=== PATIENT | female | born 1950 | race Caucasian/White ===

== ENCOUNTER 2022-02-02 01:45 | Emergency (ER) | payer MEDICARE, OTHER ==
[2022-02-02] MEDS: ACETAMINOPHEN 325 MG TABLET PO STA (03:21)
--- NOTE | 2022-02-02 03:34 | ED Physician Documentation ---
History of Present Illness - Stated complaint Stated Complaint: GLF - Chief complaint Chief Complaint: Trauma Ch/Bk - History obtained from History obtained from: Patient - Additonal information Additional information: Patient is a 72-year-old female presenting for evaluation of head injury. She was standing up and reaching down to flower picker something on a rug when she misjudged the distance and fell forward hitting her head on the ground. She was not able to get up and activated EMS.She denies losing consciousness or being on blood thinners. She denies any recent symptoms such as fever, cough, chest pain, difficulty breathing, dizziness, abdominal pain. She reports having swelling to bilateral legs which has continued despite use of compression stockings. Her doctor has recommended diuretic in the past but she does not want to take medication such as this. She denies any new weakness. She recently moved to [facility] and has been getting her apartment ready with moving boxes and things around. Review of Systems Constitutional: denies: Fever Nose: denies: Congestion Cardiac: denies: Chest pain / pressure, Palpitations Respiratory: denies: Dyspnea, Cough GI: denies: Abdominal Pain, Vomiting : denies: Dysuria Musculoskeletal: reports: Extremity swelling Neurologic: reports: Head injury. 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 - Allergies Allergies/Adverse Reactions: Allergies Allergy/AdvReac Type Severity Reaction Status Date / Time No Known Drug Allergies Allergy Verified 02/02/22 01:59 - Social History Does the pt smoke?: No Smoking Status: Never smoker Does the pt drink ETOH?: No Does the pt have substance abuse?: No - Immunizations Immunizations are current?: Yes - POLST Patient has POLST: No PD ED PE NORMAL - General General: Alert and oriented X 3, No acute distress, Well developed/nourished - HEENT HEENT: Atraumatic, EOMI, Pharynx benign, Other (Pupils round, constricted, Symmetric) - Neck Neck: Supple, no meningeal sign, No bony TTP, C-Spine cleared by NEXUS criteria - Cardiac Cardiac: RRR, No murmur, Strong equal pulses - Respiratory Respiratory: No respiratory distress, Clear bilaterally - Abdomen Abdomen: Normal bowel sounds, Soft, Non tender - Back Back: No spinal TTP - Extremities Extremities: Other (Bilateral lower extremity pitting edema) - Neuro Neuro: Alert and oriented X 3, 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, No motor deficit, Normal speech - Psych Psych: Normal mood Results - Vitals Vitals: Vital Signs - 24 hr 02/02/22 02/02/22 02/02/22 01:54 03:29 03:57 Temperature 36.1 C L 36.0 C L Heart Rate 65 68 72 Respiratory 17 16 16 Rate Blood Pressure 155/73 H 132/57 H O2 Saturation 96 96 96 02/02/22 02/02/22 05:05 06:26 Temperature Heart Rate Respiratory 15 15 Rate Blood Pressure O2 Saturation Oxygen O2 Source Room air PD MEDICAL DECISION MAKING - ED course Complexity details: reviewed results, d/w patient ED course: Patient is a 72-year-old female presenting for evaluation of head injury after mechanical fall. No pain or areas of injury noted on exam.No focal neuro deficits noted. Given age, CT was obtained which is negative for acute findings. Patient appears to be at her baseline.Patient denies any precipitating symptoms to her fall. She does have lower extremity edema and has been advised to use diuretics in the past but does not want to. Patient again encouraged to have close follow-up with her primary care doctor and appears stable for discharge. She is aware of return precautions. Departure - Departure Disposition: 01 Home, Self Care Clinical Impression: Head injury Qualifiers: Encounter type: initial encounter Qualified Code(s): S09.90XA - Unspecified injury of head, initial encounter Condition: Stable Instructions: ED Head Injury Closed Comments: Coby - You were evaluated after a fall and hitting your head. Head CT does not show any injuries to your brain or skull. Please use Tylenol For any aches or pains. Please have close follow-up with your primary care doctor. If you have any worsening pain, weakness or new symptoms please return to the emergency department. Discharge Date/Time: 02/02/22 08:40
[2022-02-02 03:58] VITALS: BP 132/57
--- NOTE | 2022-02-02 07:32 | CT Report ---
PROCEDURE: HEAD WO INDICATIONS: head injury TECHNIQUE: Noncontrast 4.5 mm thick angled axial sections acquired from the foramen magnum to the vertex. For r adiation dose reduction, the following was used: automated exposure control, adjustment of mA and/or kV according to patient size. COMPARISON: None. FINDINGS: Image quality: Excellent. CSF spaces: Basal cisterns are patent. No extra-axial fluid collections. Ventricles are normal in size and shape. Brain: No midline shift. No intracranial masses or hemorrhage. Wilhelm-white matter interface is norm al. Skull and face: Calvarium and visualized facial bones are intact, without suspicious lesions. Sinuses: Visualized sinuses and mastoids are clear. IMPRESSION: No acute intracranial disease process. Reviewed by: Shireen Khan MD, PhD on 02/02/2022 7:31 AM PDT Approved by: Shireen Khan MD, PhD on 02/02/2022 7:31 AM PDT Station ID: [id number]
== END 2022-02-02 08:40 | disposition home or self-care (01) ==
LOC: ED 01:45
DX: S09.90XA Unspecified injury of head, initial encounter (principal); W18.30XA Fall on same level, unspecified, initial encounter; I10 Essential (primary) hypertension; Z99.3 Dependence on wheelchair
CPT/HCPCS: 70450; 99282; 99284; A9270

== ENCOUNTER 2022-06-16 01:54 | Outpatient (CLI) | payer MEDICARE, OTHER | END 2022-06-16 01:55 | disposition left against medical advice (07) | LOC: EMS 01:54 | DX: M79.652 Pain in left thigh (principal); M79.672 Pain in left foot; W06.XXXA Fall from bed, initial encounter; Y92.092 Bedroom in other non-institutional residence as the place of occurrence of the external cause ==

== ENCOUNTER 2022-07-30 01:38 | Emergency (ER) | payer MEDICARE, OTHER ==
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
[2022-07-30 05:47] VITALS: BP 142/86
--- NOTE | 2022-07-30 10:23 | CT Report ---
PROCEDURE: HEAD WO INDICATIONS: fall/head injury TECHNIQUE: Noncontrast 4.5 mm thick angled axial sections acquired from the foramen magnum to the vertex. For r adiation dose reduction, the following was used: automated exposure control, adjustment of mA and/or kV according to patient size. COMPARISON: 04/13/2022, 03/04/2022. Correlation is also made with the hip and knee plain films, 022. FINDINGS: Image quality: Excellent. CSF spaces: Basal cisterns are patent. No extra-axial fluid collections. Ventricles are normal in size and shape. Brain: No midline shift. No intracranial masses or hemorrhage. Wilhelm-white matter interface is norm al. Skull and face: Calvarium and visualized facial bones are intact, without suspicious lesions. Sinuses: Visualized sinuses and mastoids are clear. IMPRESSION: No intracranial hemorrhage is seen. No significant intracranial abnormality is seen. Note: No significant discrepancy from the preliminary report. Reviewed by: Joaquim Pierson MD on 07/30/2022 9:22 AM [facility] Approved by: Joaquim Pierson MD on 07/30/2022 9:22 AM [facility] Station ID: [id number]
--- NOTE | 2022-07-30 10:24 | XRAY Report ---
PROCEDURE: Knee 3 View LT INDICATIONS: fall TECHNIQUE: 3 views of the left knee(s) were acquired. COMPARISON: Correlation is made with the accompanying head CT and hip plain films, 07/30/2022. FINDINGS: Bones: No fractures or dislocations. No suspicious bony lesions. Degenerative changes are seen, in cluding mild to moderate medial femorotibial joint space narrowing and moderate patellofemoral joint space narrowing. Soft tissues: No joint effusion. No suspicious soft tissue calcifications. IMPRESSION: No acute plain film abnormality is seen. Underlying degenerative changes are seen. If it would be helpful for clinical management decision making, please consider a dedicated, schedule d knee MRI for further evaluation (assuming that there is no contraindication). Note: No significant discrepancy from the preliminary report. Reviewed by: Joaquim Pierson MD on 07/30/2022 9:23 AM [facility] Approved by: Joaquim Pierson MD on 07/30/2022 9:23 AM [facility] Station ID: [id number]
--- NOTE | 2022-07-30 10:25 | XRAY Report ---
PROCEDURE: Hip w/Pelvis 2-3V LT INDICATIONS: fall TECHNIQUE: AP pelvis with lateral view(s) of the left hip(s). COMPARISON: Correlation is made with the accompanying knee plain films and head CT, 07/30/2022. FINDINGS: Bones: No fractures or dislocations. Pelvic ring appears intact. No suspicious bony lesions. Note is made of age-appropriate degenerative change of the lower lumbar spine. There is moderate superior joint space narrowing seen involving both hips. There is associated remode ling change, with subchondral sclerosis and osteophyte formation. Soft tissues: The visualized bowel gas pattern is normal. No suspicious soft tissue calcifications. IMPRESSION: Negative for acute fracture by plain film. Underlying degenerative changes are seen. Note: No significant discrepancy from the preliminary report. Reviewed by: Joaquim Pierson MD on 07/30/2022 9:24 AM [facility] Approved by: Joaquim Pierson MD on 07/30/2022 9:24 AM [facility] Station ID: [id number]
== END 2022-07-30 05:45 | disposition home or self-care (01) ==
LOC: ED 01:38
DX: S00.81XA Abrasion of other part of head, initial encounter (principal); S09.90XA Unspecified injury of head, initial encounter; M25.562 Pain in left knee; V00.811A Fall from moving wheelchair (powered), initial encounter; Y93.89 Activity, other specified
CPT/HCPCS: 99282; 99284

== ENCOUNTER 2023-08-07 13:25 | Outpatient (CLI) | payer MEDICARE, OTHER | END 2023-08-07 13:26 | disposition critical access hospital (66) | LOC: EMS 13:25 | DX: R47.81 Slurred speech (principal); R53.1 Weakness; R39.89 Other symptoms and signs involving the genitourinary system | CPT/HCPCS: A0425; A0429 ==

== ENCOUNTER 2023-08-07 13:44 | Emergency (ER) | payer MEDICARE, OTHER ==
--- NOTE | 2023-08-07 14:10 | ED Physician Documentation ---
PD HPI FOCAL NEURO - Stated complaint Stated Complaint: GEN WEAKNESS - Chief complaint Chief Complaint: General - History obtained from History obtained from: Patient, EMS - History of Present Illness Weakness: No: Face, Arm, Hand, Leg, Foot, Right, Left Numbness: No: Face, Arm, Hand, Leg, Foot, Right, Left Associated symptoms: No: Headache, Nausea / vomiting, Seizure, Fall, Head injury Contributing factors: negative: Anticoagulated, Vascular dz, Atrial fibrillation, Prosthetic heart valve Baseline status: positive: Wheelchair - Additional information Additional information: Patient is a 73-year-old female who lives at [place]. She presents today with a complaint of slurred speech, last known normal was last night. She states that she does have a history of a stroke affecting her left side. She does not recall if she had any speech difficulties with a prior stroke or not. She usually uses a power chair to move around at the [facility]. No headache, no vomiting, no seizure activity denies any falls or head injury. No numbness, tingling or focal weakness. No headache. Nothing makes it better or worse. She states she awoke with the symptoms this morning. 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 : Other HEENT: Glaucoma Psych: None Musculoskeletal: None Derm: None - Present Medications Home Medications: Ambulatory Orders Medication Instructions Recorded Confirmed Levothyroxine [Synthroid] 1 tab PO DAILY 07/30/22 08/07/23 carvediloL [Coreg] 1 tab PO BID 07/30/22 08/07/23 Furosemide [Lasix] 20 mg PO DAILY 08/07/23 08/07/23 Losartan Potassium 25 mg PO DAILY 08/07/23 08/07/23 cephALEXin [Keflex] 500 mg PO Q6H #20 cap 08/07/23 - Allergies Allergies/Adverse Reactions: Allergies Allergy/AdvReac Type Severity Reaction Status Date / Time No Known Drug Allergies Allergy Unverified 07/30/22 01:36 - Social History Does the pt smoke?: No Smoking Status: Never smoker Does the pt drink ETOH?: No Does the pt have substance abuse?: No - Immunizations Immunizations are current?: Yes - POLST Patient has POLST: No PD ED PE NORMAL - Vitals Vital signs reviewed: Yes - General General: Alert and oriented X 3, No acute distress, Well developed/nourished - HEENT HEENT: PERRL, Moist mucous membranes, Pharynx benign, Other (Very mild dysarthria) - Neck Neck: Supple, no meningeal sign - Cardiac Cardiac: RRR, Strong equal pulses - Respiratory Respiratory: No respiratory distress, Clear bilaterally - Abdomen Abdomen: Soft, Non tender, Non distended - Back Back: No CVA TTP, No spinal TTP - Derm Derm: Warm and dry - Extremities Extremities: No edema, No calf tenderness / cord - Neuro Neuro: Alert and oriented X 3, 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 poultry 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, No motor deficit, No sensory deficit Eye Opening: Spontaneous Motor: Obeys Commands Verbal: Oriented GCS Score: 15 - Psych Psych: Normal mood, Normal affect NIHSS - Time Time: 14:05 - Level of Consciousness Level of consciousness: (0) Alert, Keenly responsive LOC Questions: (0) Answers both Q's correct LOC Commands: (0) Performs both correctly - Gaze Best Gaze: (0) Normal - Visual Visual: (0) No loss - Facial Palsy Facial Palsy: (0) Normal, symmetrical movement - Motor Arms (both separate) Motor Arm (right): (0) No drift Motor Arm (left): (0) No drift - Motor Legs (both separate) Motor Leg (right): (0) No drift Motor Leg (left): (0) No drift - Limb Ataxia Limb Ataxia: (0) Absent - Sensory Sensory: (0) Normal - Best Language Best Language: (0) No aphasia - Dysarthria Dysarthria: (1) [id number] dysarthria - Extinction and Inattention (formally neg Extinction and inattention: (0) No abnormality - Total Score/Results Total Score/Result: 1 Results - Vitals Vitals: Vital Signs - 24 hr 08/07/23 08/07/23 08/07/23 13:49 14:01 17:13 Temperature 36.4 C L Heart Rate 63 59 L 76 Respiratory 16 21 20 Rate Blood Pressure 147/62 H 147/62 H 197/88 H O2 Saturation 96 95 97 08/07/23 08/07/23 20:10 20:29 Temperature 37 C 37 C Heart Rate 83 83 Respiratory 20 20 Rate Blood Pressure 134/74 H 134/85 H O2 Saturation 100 100 Oxygen O2 Source Room air - Labs Labs: Laboratory Tests 08/07/23 08/07/23 08/07/23 14:19 14:19 14:48 WBC 9.0 RBC 4.41 Hgb 12.7 Hct 40.4 MCV 91.6 MCH 28.8 MCHC 31.4 L RDW 14.6 Plt Count 250 MPV 11.9 H Neut # (Auto) 6.1 Lymph # (Auto) 2.0 [place] # (Auto) 0.7 Eos # (Auto) 0.1 Baso # (Auto) 0.1 Absolute Nucleated RBC 0.00 Nucleated RBC % 0.0 Sodium 137 Potassium 4.0 Chloride 103 Carbon Dioxide 26 Anion Gap 8.0 BUN 27 H Creatinine 1.3 Estimated GFR (MDRD) 40 L Glucose 123 H Calcium 9.6 Total Bilirubin 0.6 AST 16 ALT 13 Alkaline Phosphatase 97 Total Protein 6.9 Albumin 4.3 Globulin 2.6 Albumin/Globulin Ratio 1.7 Lipase 37 Urine Color YELLOW Urine Clarity CLEAR Urine pH 7.0 Ur Specific [place] 1.010 Urine Protein TRACE Urine Glucose (UA) NEGATIVE Urine Ketones NEGATIVE Urine Occult Blood NEGATIVE Urine Nitrite POSITIVE H Urine Bilirubin NEGATIVE Urine Urobilinogen 0.2 (NORMAL) Ur Leukocyte Esterase LARGE H Urine RBC 0-5 Urine WBC >25 H Ur Squamous Epith Cells FEW Squamous Amorphous Sediment Marked Urine Bacteria Many H Ur Microscopic Review INDICATED Urine Culture Comments INDICATED - Rads (name of study) CT head Relevant Findings:: Final report received, See rad report Angio head and neck Relevant Findings:: Final report received, See rad report Brain MRI Relevant Findings:: Final report received, See rad report PD Medical Decision Making - ED course Complexity details: reviewed results, re-evaluated patient, considered differential, d/w patient ED course: Patient with mild dysarthria. No acute findings on CT scan of the head, angiogram of the head and neck or brain MRI. Only lab abnormality is a UTI. Given Rocephin for this and will place on antibiotics for home. No evidence of sepsis. No fevers. Patient appears to be at her normal mental baseline. Patient is eating and drinking without difficulty here. No evidence of acute stroke. No other significant findings. Patient counseled regarding signs and symptoms for which I believe and urgent re-evaluation would be necessary. Patient with good understanding of and agreement to plan and is comfortable going home at this time This document was made in part using voice recognition software. While efforts are made to proofread this document, sound alike and grammatical errors may occur. Departure - Departure Disposition: Home, Self Care Clinical Impression: Dysarthria UTI (urinary tract infection) Qualifiers: Urinary tract infection type: acute cystitis Hematuria presence: without hematuria Qualified Code(s): N30.00 - Acute cystitis without hematuria Condition: Good Instructions: ED UTI Cystitis Female Follow-Up: SRINIVASA MCCARTY PA-C [Primary Care Provider] - Within 1 week Prescriptions: cephALEXin [Keflex] 500 mg PO Q6H #20 cap Comments: [facility]. Please follow-up with your doctor for further care. Your CT scan and MRI do not show any acute abnormalities today. You do appear to have a bladder infection. Forms: PCP List Discharge Date/Time: 08/07/23 20:30
[2023-08-07 14:24] LABS: BASOPHILS # (AUTO) 0.1 10^3/uL (0.0-0.1); BASOPHILS % (AUTO) 0.7 %; EOSINOPHILS # (AUTO) 0.1 10^3/uL (0.0-0.7); HCT - HEMATOCRIT 40.4 % (37.0-47.0); HGB - HEMOGLOBIN 12.7 g/dL (12.0-16.0); LYMPHOCYTES % (AUTO) 22.4 %; MEAN CORPUSCULAR HEMOGLOBIN 28.8 pg (27.0-31.0); MEAN CORPUSCULAR HGB CONC 31.4 g/dL (32.0-36.0); MEAN CORPUSCULAR VOLUME 91.6 fL (81.0-99.0); MEAN PLATELET VOLUME 11.9 fL (7.9-10.8); MONOCYTES # (AUTO) 0.7 10^3/uL (0.0-1.0); MONOCYTES % (AUTO) 8.2 %; NEUTROPHILS # (AUTO) 6.1 10^3/uL (1.5-6.6); NEUTROPHILS % (AUTO) 67.6 %; PLT - PLATELET COUNT 250 10^3/uL (130-450); RED BLOOD COUNT 4.41 10^6/uL (4.20-5.40); RED CELL DISTRIBUTION WIDTH 14.6 % (12.0-15.0)
[2023-08-07 14:40] LABS: ALBUMIN 4.3 g/dL (3.2-5.5); ALBUMIN/GLOBULIN RATIO 1.7 (1.0-2.2); BILIRUBIN,TOTAL 0.6 mg/dL (0.2-1.0); CALCIUM 9.6 mg/dL (8.5-10.3); CREATININE 1.3 mg/dL (0.6-1.3); TOTAL PROTEIN 6.9 g/dL (6.4-8.9)
[2023-08-07 14:58] LABS: BILIRUBIN,URINE NEGATIVE (NEGATIVE); CLARITY,URINE CLEAR (CLEAR); GLUCOSE, URINE (UA) NEGATIVE (NEGATIVE); KETONES,URINE (UA) NEGATIVE (NEGATIVE); LEUKOCYTE ESTERASE, URINE LARGE (NEGATIVE); NITRITE,URINE POSITIVE (NEGATIVE); OCCULT BLOOD,URINE NEGATIVE (NEGATIVE); PROTEIN,URINE TRACE mg/dL (NEGATIVE); UROBILINOGEN,URINE 0.2 (NORMAL) E.U./dL (NORMAL)
[2023-08-07] MEDS ORDERED: iohexoL-300 100 ML VIAL IVP ONE (15:03)
[2023-08-07 15:08] LABS: AMORPHOUS SEDIMENT,UR Marked /LPF; BACTERIA,URINE Many /HPF (None Seen); RBC,URINE 0-5 /HPF (0-5); SQUAMOUS EPITHELIAL CELL,UR FEW Squamous (<= Few); WBC,URINE >25 /HPF (0-5)
--- NOTE | 2023-08-07 15:29 | CT Report ---
PROCEDURE: HEAD WO INDICATIONS: slurred speech x 24 hours TECHNIQUE: Noncontrast 4.5 mm thick angled axial sections acquired from the foramen magnum to the vertex. For r adiation dose reduction, the following was used: automated exposure control, adjustment of mA and/or kV according to patient size. COMPARISON: None. FINDINGS: Image quality: Excellent. CSF spaces: Basal cisterns are patent. No extra-axial fluid collections. Ventricles are normal in size and shape. Brain: No midline shift. No intracranial masses or hemorrhage. Wilhelm-white matter interface is norm al. Skull and face: Calvarium and visualized facial bones are intact, without suspicious lesions. Sinuses: Visualized sinuses and mastoids are clear. IMPRESSION: No acute intracranial abnormality. Reviewed by: Bruce Long MD on 08/07/2023 3:27 PM PST Approved by: Bruce Long MD on 08/07/2023 3:27 PM PST Station ID: [id number]
--- NOTE | 2023-08-07 15:31 | CT Report ---
PROCEDURE: CT Angio Head/Neck INDICATIONS: slurred speech x 24 hours TECHNIQUE: After the administration of intravenous contrast, 1 mm thick sections acquired from the aortic arch t hrough the [place]. 3-dimensional mqafxsc-khbgagxvg-xujnumfjbh (MIP) and/or volume renderin g reformats were acquired of the central intracranial vasculature and neck separately. For radiation dose reduction, the following was used: automated exposure control, adjustment of mA and/or kV acco rding to patient size. CONTRAST: Intravenous iodinated contrast COMPARISON: None. FINDINGS: Image quality: Diagnostic. HEAD CT: CSF Spaces: Basal cisterns are patent. No extra-axial fluid collections. Ventricles are normal in size and shape. Brain: The brain is within normal limits for age and scanning technique. Skull and face: Calvarium and visualized facial bones appear intact, without suspicious lesions. Sinuses: Visualized sinuses and mastoids are clear. HEAD CT ANGIOGRAPHY: Anterior circulation: Intracranial internal carotid arteries are normal in size and flow. The flow within the paired anterior cerebral arteries is normal and symmetric. The flow within the middle cer ebral arteries is normal and symmetric. The anterior communicating artery is seen. No aneurysms are seen. Posterior circulation: Visualized portions of the vertebral arteries demonstrate normal caliber, and join to form a normal appearing basilar artery. Flow within the posterior cerebral arteries is norm al and symmetric. No aneurysms are seen. NECK CT ANGIOGRAPHY: Carotid system: The great vessels demonstrate a conventional anatomy as they arise from the aortic a rch. The origins of the common carotid arteries appear patent. The common carotid arteries demonstr ate normal caliber and courses. There is a roughly 50% origin stenosis of the right internal carotid artery. Roughly 40% origin stenosis of the left internal carotid artery. Posterior circulation: The origins of the vertebral arteries both appear widely patent. The more roberts perior extracranial portions of both vertebral arteries also demonstrate normal courses and calibers. They join to form a normal appearing basilar artery. Soft tissues: Visualized neck soft tissues demonstrate no suspicious abnormalities. Bones: No suspicious bony lesions. Visualized cervical spine appears normally aligned. IMPRESSION: 1. No acute process involving the arterial tree of the head and neck. 2. Bilateral internal carotid artery origin stenoses. The estimate of stenosis included in the report of the imaging study was calculated using the NASCET method Reviewed by: Bruce Long MD on 08/07/2023 3:30 PM PST Approved by: Bruec Long MD on 08/07/2023 3:30 PM [facility] Station ID: [id number]
[2023-08-07] MEDS ORDERED: cefTRIAXone 1 GM VIAL IVP STA (17:39)
--- NOTE | 2023-08-07 19:20 | MRI Report ---
PROCEDURE: BRAIN WO INDICATIONS: slurred speech x 24 hours TECHNIQUE: Noncontrast axial T1 spin echo, axial T2 fast spin echo, sagittal and axial FLAIR, coronal T2 fast sp in echo, axial gradient echo, axial diffusion and ADC through the brain. COMPARISON: CT of head on the same day. FINDINGS: Image quality: Excellent. CSF Spaces: Basal cisterns are patent. No extra-axial fluid collections. Ventricles are normal in size and shape. Brain: No intracranial masses or hemorrhage. There is diffuse volume loss related to patient's age. Mild to moderate periventricular and deep white matter chronic small vessel ischemic changes are note d. Old lacunar infarct is seen in left basal ganglia. Wilhelm/white matter interface is normal. Brainst em appears normal. Diffusion-weighted images demonstrate no acute ischemic insult. No chronic ische renate insults. Normal intravascular flow voids are present. Skull and face: Calvarium has normal marrow signal. Orbits appear normal. Sinuses: Sinuses and mastoids are clear. IMPRESSION: 1. No acute infarction. No acute intracranial bleed, midline shift or mass effect. 2. Age-related volume loss and moderate periventricular and deep white matter chronic small vessel is chemic changes. Old lacunar infarct in left basal ganglia. Reviewed by: Rodri Gurrola MD on 08/07/2023 7:19 PM PST Approved by: Rodri Gurrola MD on 08/07/2023 7:19 PM PST Station ID: [id number]
[2023-08-07 20:17] VITALS: O2SAT 100
[2023-08-07 20:34] VITALS: BP 134/85
== END 2023-08-07 20:30 | disposition home or self-care (01) ==
LOC: EDUNIT# → ED 13:44
DX: N30.00 Acute cystitis without hematuria (principal); R47.1 Dysarthria and anarthria; I10 Essential (primary) hypertension
CPT/HCPCS: 36415; 70450; 70496; 70498; 70551; 80053; 81001; 83690; 85025; 87086; 87181; 96374; 99284; Q9967; 81003

== ENCOUNTER 2023-08-07 20:26 | Outpatient (CLI) | payer MEDICARE, OTHER | END 2023-08-07 23:59 | disposition home or self-care (01) | LOC: EMS 20:26 | PROVIDERS: ATTEND Emergency Medicine | DX: R41.0 Disorientation, unspecified (principal); R60.0 Localized edema; R53.1 Weakness; N39.0 Urinary tract infection, site not specified; Z74.01 Bed confinement status | CPT/HCPCS: A0425; A0428 ==

== ENCOUNTER 2023-11-17 13:45 | Outpatient (CLI) | payer MEDICARE, OTHER | END 2023-11-17 13:46 | disposition left against medical advice (07) | LOC: EMS 13:45 | DX: M79.672 Pain in left foot (principal); W18.39XA Other fall on same level, initial encounter; Y93.01 Activity, walking, marching and hiking; Y92.099 Unspecified place in other non-institutional residence as the place of occurrence of the external cause; R53.1 Weakness ==

== ENCOUNTER 2023-11-17 17:53 | Outpatient (CLI) | payer MEDICARE, OTHER | END 2023-11-17 17:54 | disposition critical access hospital (66) | LOC: EMS 17:53 | DX: M25.571 Pain in right ankle and joints of right foot (principal); W18.30XA Fall on same level, unspecified, initial encounter; Y93.01 Activity, walking, marching and hiking; Y92.099 Unspecified place in other non-institutional residence as the place of occurrence of the external cause; R53.1 Weakness | CPT/HCPCS: A0425; A0429 ==

== ENCOUNTER 2023-11-17 18:11 | Emergency (ER) | payer MEDICARE, OTHER ==
--- NOTE | 2023-11-17 18:25 | ED Physician Documentation ---
PD HPI LOWER EXT INJURY - Stated complaint Stated Complaint: GLF, RT FOOT AND ANKLE PAIN - History obtained from History obtained from: Patient, EMS - Additional information Additional information: 73-year-old woman with history of hypertension, CHF, glaucoma who is in assisted living facility had a fall today. She states that she was trying to exercise more and improve her endurance, and she walked further than she is used to and then she kind of got weak and fell. The main issue is right foot pain for which she declines pain medication on initial evaluation. Denies head injury or loss of consciousness. No chest pain or trouble breathing. 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 : Other HEENT: Glaucoma Psych: None Musculoskeletal: None Derm: None - Present Medications Home Medications: Ambulatory Orders Medication Instructions Recorded Confirmed Levothyroxine [Synthroid] 1 tab PO DAILY 07/30/22 11/17/23 carvediloL [Coreg] 1 tab PO BID 07/30/22 11/17/23 Losartan Potassium 25 mg PO DAILY 08/07/23 11/17/23 - Allergies Allergies/Adverse Reactions: Allergies Allergy/AdvReac Type Severity Reaction Status Date / Time No Known Drug Allergies Allergy Verified 11/17/23 18:20 - Social History Does the pt smoke?: No Smoking Status: Never smoker Does the pt drink ETOH?: No Does the pt have substance abuse?: No - Immunizations Immunizations are current?: Yes - POLST Patient has POLST: No PD ED PE NORMAL - Vitals Vital signs reviewed: Yes - General General: Alert and oriented X 3, No acute distress - HEENT HEENT: PERRL, EOMI - Neck Neck: No bony TTP - Cardiac Cardiac: RRR, No murmur - Respiratory Respiratory: No respiratory distress, Clear bilaterally - Abdomen Abdomen: Non tender - Extremities Extremities: Other (Both hips are nontender without pain with rotation. She is tender over both proximal fibula, left greater than right. Mild tenderness of the lateral right ankle and midfoot. No left ankle or foot tenderness.) - Neuro Neuro: Alert and oriented X 3, Normal speech - Psych Psych: Normal mood, Normal affect Results - Vitals Vitals: Vital Signs - 24 hr 11/17/23 18:10 Temperature 36.1 C L Heart Rate 72 Respiratory 16 Rate Blood Pressure 165/68 H O2 Saturation 95 Oxygen O2 Source Room air - Rads (name of study) X-rays of the right foot, ankle, and bilateral knees were negative for fracture. Relevant Findings:: Final report received, EMP independent interpretation of test Departure - Departure Disposition: 01 Home, Self Care Clinical Impression: Knee injury, Injury of foot, Ankle injury Condition: Good Record reviewed to determine appropriate education?: Yes Instructions: ED Sprain Ankle W X Ray, ED Sprain Foot Comments: We did x-rays of the right foot and ankle and both knees. There were no fractures in any of them. Do return if you identify other new or worrisome symptoms. Tylenol as needed for pain. Follow-up with your doctor in a week for recheck. Forms: PCP List
[2023-11-17 18:40] VITALS: BP 165/68; O2SAT 95
--- NOTE | 2023-11-17 19:11 | XRAY Report ---
PROCEDURE: Knee 4+V BL INDICATIONS: knee inj B TECHNIQUE: 4 views of the knee(s) were acquired. COMPARISON: None. FINDINGS: Bones: No fractures or dislocations. No suspicious bony lesions. Moderate tricompartmental arthri tic change. Soft tissues: No knee joint effusion. No suspicious soft tissue calcifications or masses. IMPRESSION: No visualized acute fracture or dislocation. However, occult injury cannot be excluded. Recommend mustapha rt interval imaging follow-up in 7-10 days as clinically indicated for additional evaluation. Reviewed by: Jyotsna Ferro MD on 11/17/2023 7:10 PM PDT Approved by: Jyotsna Ferro MD on 11/17/2023 7:10 PM PDT Station ID: [id number]
--- NOTE | 2023-11-17 19:12 | XRAY Report ---
PROCEDURE: Foot 3+V RT INDICATIONS: foot inj TECHNIQUE: 3 views of the foot were acquired. COMPARISON: None. FINDINGS: Bones: No fractures or dislocations. No suspicious bony lesions. IP degenerative change. Soft tissues: No tibiotalar joint effusion. Achilles tendon appears normal. IMPRESSION: No visualized acute fracture or dislocation. However, occult injury cannot be excluded. Recommend mustapha rt interval imaging follow-up in 7-10 days as clinically indicated for additional evaluation. Reviewed by: Jyotsna Ferro MD on 11/17/2023 7:11 PM PDT Approved by: Jyotsna Ferro MD on 11/17/2023 7:11 PM PDT Station ID: [id number]
--- NOTE | 2023-11-17 19:14 | XRAY Report ---
PROCEDURE: Ankle 3+V RT INDICATIONS: ankle inj TECHNIQUE: 3 views of the ankle were acquired. COMPARISON: X-ray foot 11/17/2023 FINDINGS: Bones: No fractures or dislocations. Ankle mortise is normally aligned. No suspicious bony lesions . Prominent calcaneal spur. Soft tissues: Ankle edema is present. Achilles tendon appears normal. IMPRESSION: No visualized acute fracture or dislocation. However, occult injury cannot be excluded. Recommend mustapha rt interval imaging follow-up in 7-10 days as clinically indicated for additional evaluation. Reviewed by: Jyotsna Ferro MD on 11/17/2023 7:13 PM PDT Approved by: Jyotsna Ferro MD on 11/17/2023 7:13 PM PDT Station ID: [id number]
== END 2023-11-17 19:35 | disposition home or self-care (01) ==
LOC: EDUNIT# → ED 18:11
DX: S99.912A Unspecified injury of left ankle, initial encounter (principal); S89.91XA Unspecified injury of right lower leg, initial encounter; W19.XXXA Unspecified fall, initial encounter; Y93.01 Activity, walking, marching and hiking; I10 Essential (primary) hypertension
CPT/HCPCS: 99284

== ENCOUNTER 2023-11-18 15:51 | Outpatient (CLI) | payer MEDICARE, OTHER | END 2023-11-18 23:59 | disposition critical access hospital (66) | LOC: EMS 15:51 | DX: R41.82 Altered mental status, unspecified (principal); R11.0 Nausea; R09.89 Other specified symptoms and signs involving the circulatory and respiratory systems; R39.89 Other symptoms and signs involving the genitourinary system; R19.37 Generalized abdominal rigidity | CPT/HCPCS: A0425; A0427 ==

== ENCOUNTER 2023-11-18 16:40 | Inpatient (IN) | payer MEDICARE, OTHER ==
--- NOTE | 2023-11-18 16:53 | ED Physician Documentation ---
PD HPI ALTERED MENTAL STATUS - Stated complaint Stated Complaint: GLF/AMS - Chief complaint Chief Complaint: General - History obtained from History obtained from: Patient, Family (sister), EMS - History of Present Illness Timing - onset: How many days ago (pt states few days of weaker and falling, with injury yesterday of ankle and leg. Was having more trouble getting around with that. Today was having decreased alertness and more somnolent. Has had cough for few days. No fevers noted. Noted by caregivers to be hypoxic today as well. EMS called.) Timing - duration: Days Timing - details: Gradual onset, Still present Quality / character: Less responsive Associated symptoms: Dyspnea, Cough. No: Fever, Headache, NVD, Focal weakness Basline status: Alert and oriented X 3, Walker Similar symptoms before: Has not had sx before Recently seen: Emergency Dept Review of Systems Constitutional: denies: Fever Nose: reports: Rhinorrhea / runny nose Throat: denies: Sore throat Respiratory: reports: Dyspnea, Cough Neurologic: reports: Generalized weakness. 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 : Other HEENT: Glaucoma Psych: None Musculoskeletal: None Derm: None - Past Surgical History Past Surgical History: Yes - Present Medications Home Medications: Ambulatory Orders Medication Instructions Recorded Confirmed Levothyroxine [Synthroid] 1 tab PO DAILY 07/30/22 11/17/23 carvediloL [Coreg] 1 tab PO BID 07/30/22 11/17/23 Losartan Potassium 25 mg PO DAILY 08/07/23 11/17/23 - Allergies Allergies/Adverse Reactions: Allergies Allergy/AdvReac Type Severity Reaction Status Date / Time No Known Drug Allergies Allergy Verified 11/18/23 16:46 - Social History Does the pt smoke?: No Smoking Status: Never smoker Does the pt drink ETOH?: No Does the pt have substance abuse?: No - Immunizations Immunizations are current?: Yes - POLST Patient has POLST: No PD ED PE NORMAL - Vitals Vital signs reviewed: Yes - General General: No acute distress (somnolent and seems general weakness. No work of breeathing but is hypoxic on RA at 84-88%. ), Well developed/nourished - HEENT HEENT: Pharynx benign - Neck Neck: Supple, no meningeal sign, No adenopathy - Cardiac Cardiac: RRR, No murmur - Respiratory Respiratory: No respiratory distress. No: Clear bilaterally (no crackles. Has some exp wheezing diffusely. ) - Abdomen Abdomen: Soft, Non tender - Extremities Extremities: No calf tenderness / cord, Other (1+ edema in both lower legs. Umesh wrap on right ankle. ) - Neuro Neuro: No motor deficit, No sensory deficit Results - Vitals Vitals: Vital Signs - 24 hr 11/18/23 11/18/23 11/18/23 16:46 16:50 18:20 Temperature 36.8 C 36.8 C Heart Rate 69 69 72 Respiratory 20 18 18 Rate Blood Pressure 116/54 L 116/54 L O2 Saturation 88 L 93 If not protocol 3 3 : Oxygen Flow, liters/minute 11/18/23 11/18/23 18:50 20:00 Temperature 36.8 C Heart Rate 69 82 Respiratory 18 18 Rate Blood Pressure 130/60 150/74 H O2 Saturation 96 96 If not protocol 3 2 : Oxygen Flow, liters/minute Oxygen O2 Source Nasal cannula Oxygen Flow Rate 3 - EKG (time done) 17:02 EKG releavant findings:: EKG personally interpreted by author of this note. Relevant findings are: Rate: Rate (enter#) (69) Rhythm: NSR [place]: Normal Intervals: Normal DC QRS: Normal Ischemia: Normal ST segments. No: ST elevation c/w ischemia, ST depression - Labs Labs: Laboratory Tests 11/18/23 11/18/23 11/18/23 17:02 17:02 17:02 WBC 8.1 RBC 4.18 L Hgb 12.0 Hct 37.1 MCV 88.8 MCH 28.7 MCHC 32.3 RDW 14.5 Plt Count 181 MPV 11.7 H Neut # (Auto) 6.6 Lymph # (Auto) 0.7 L [place] # (Auto) 0.7 Eos # (Auto) 0.0 Baso # (Auto) 0.0 Absolute Nucleated RBC 0.00 Nucleated RBC % 0.0 D-Dimer VBG pH 7.407 VBG pCO2 32.3 L VBG pO2 53.9 H VBG HCO3 19.9 L VBG Total CO2 20.9 L VBG O2 Saturation 87.2 H VBG Base Excess -3.9 L Sodium 134 L Potassium 3.7 Chloride 102 Carbon Dioxide 21 Anion Gap 11.0 BUN 27 H Creatinine 1.5 H Estimated GFR (MDRD) 34 L Glucose 151 H Calcium 8.4 L Magnesium 1.8 Total Bilirubin 0.5 AST 29 ALT 20 Alkaline Phosphatase 75 B-Natriuretic Peptide Total Protein 6.8 Albumin 3.8 Globulin 3.0 Albumin/Globulin Ratio 1.3 Lipase 38 Urine Color Urine Clarity Urine pH Ur Specific [place] Urine Protein Urine Glucose (UA) Urine Ketones Urine Occult Blood Urine Nitrite Urine Bilirubin Urine Urobilinogen Ur Leukocyte Esterase Urine RBC Urine WBC Ur Squamous Epith Cells Urine Bacteria Ur Microscopic Review Urine Culture Comments Nasal Adenovirus (PCR) Nasal B. parapertussis DNA (PCR) Nasal Coronavir 229E PCR Nasal Coronavir HKU1 PCR Nasal Coronavir NL63 PCR Nasal Coronavir OC43 PCR Nasal Enterovir/Rhinovir PCR Nasal Influenza B PCR Nasal Influenza A PCR Nasal Parainfluen 1 PCR Nasal Parainfluen 2 PCR Nasal Parainfluen 3 PCR Nasal Parainfluen 4 PCR Nasal RSV (PCR) Nasal B.pertussis DNA PCR Nasal C.pneumoniae (PCR) Nick Human Metapneumo PCR Nasal M.pneumoniae (PCR) Nasal SARS-CoV-2 (PCR) Urine Opiates Screen Ur Buprenorphine Scrn Ur Oxycodone Screen Urine Methadone Screen Ur Barbiturates Screen Ur Tricyclics Screen Ur Phencyclidine Scrn Ur Amphetamine Screen U Methamphetamines Scrn U Benzodiazepines Scrn Urine Cocaine Screen U Cannabinoids Screen Ur Drug Screen Comment Ethyl Alcohol < 10.0 11/18/23 11/18/23 11/18/23 17:02 17:10 17:10 WBC RBC Hgb Hct MCV MCH MCHC RDW Plt Count MPV Neut # (Auto) Lymph # (Auto) [place] # (Auto) Eos # (Auto) Baso # (Auto) Absolute Nucleated RBC Nucleated RBC % D-Dimer VBG pH VBG pCO2 VBG pO2 VBG HCO3 VBG Total CO2 VBG O2 Saturation VBG Base Excess Sodium Potassium Chloride Carbon Dioxide Anion Gap BUN Creatinine Estimated GFR (MDRD) Glucose Calcium Magnesium Total Bilirubin AST ALT Alkaline Phosphatase B-Natriuretic Peptide 109 H Total Protein Albumin Globulin Albumin/Globulin Ratio Lipase Urine Color YELLOW Urine Clarity CLOUDY Urine pH 6.0 Ur Specific [place] 1.020 Urine Protein 30 H Urine Glucose (UA) NEGATIVE Urine Ketones NEGATIVE Urine Occult Blood LARGE H Urine Nitrite NEGATIVE Urine Bilirubin NEGATIVE Urine Urobilinogen 0.2 (NORMAL) Ur Leukocyte Esterase NEGATIVE Urine RBC 11-25 H Urine WBC 6-10 H Ur Squamous Epith Cells FEW Squamous Urine Bacteria Many H Ur Microscopic Review INDICATED Urine Culture Comments NOT INDICATED Nasal Adenovirus (PCR) Nasal B. parapertussis DNA (PCR) Nasal Coronavir 229E PCR Nasal Coronavir HKU1 PCR Nasal Coronavir NL63 PCR Nasal Coronavir OC43 PCR Nasal Enterovir/Rhinovir PCR Nasal Influenza B PCR Nasal Influenza A PCR Nasal Parainfluen 1 PCR Nasal Parainfluen 2 PCR Nasal Parainfluen 3 PCR Nasal Parainfluen 4 PCR Nasal RSV (PCR) Nasal B.pertussis DNA PCR Nasal C.pneumoniae (PCR) Nick Human Metapneumo PCR Nasal M.pneumoniae (PCR) Nasal SARS-CoV-2 (PCR) Urine Opiates Screen NEGATIVE Ur Buprenorphine Scrn NEGATIVE Ur Oxycodone Screen NEGATIVE Urine Methadone Screen NEGATIVE Ur Barbiturates Screen NEGATIVE Ur Tricyclics Screen NEGATIVE Ur Phencyclidine Scrn NEGATIVE Ur Amphetamine Screen NEGATIVE U Methamphetamines Scrn NEGATIVE U Benzodiazepines Scrn NEGATIVE Urine Cocaine Screen NEGATIVE U Cannabinoids Screen NEGATIVE Ur Drug Screen Comment CUTOFF CONC BELOW: Ethyl Alcohol 11/18/23 11/18/23 18:24 19:38 WBC RBC Hgb Hct MCV MCH MCHC RDW Plt Count MPV Neut # (Auto) Lymph # (Auto) [place] # (Auto) Eos # (Auto) Baso # (Auto) Absolute Nucleated RBC Nucleated RBC % D-Dimer 945.4 H VBG pH VBG pCO2 VBG pO2 VBG HCO3 VBG Total CO2 VBG O2 Saturation VBG Base Excess Sodium Potassium Chloride Carbon Dioxide Anion Gap BUN Creatinine Estimated GFR (MDRD) Glucose Calcium Magnesium Total Bilirubin AST ALT Alkaline Phosphatase B-Natriuretic Peptide Total Protein Albumin Globulin Albumin/Globulin Ratio Lipase Urine Color Urine Clarity Urine pH Ur Specific [place] Urine Protein Urine Glucose (UA) Urine Ketones Urine Occult Blood Urine Nitrite Urine Bilirubin Urine Urobilinogen Ur Leukocyte Esterase Urine RBC Urine WBC Ur Squamous Epith Cells Urine Bacteria Ur Microscopic Review Urine Culture Comments Nasal Adenovirus (PCR) NOT DETECTED Nasal B. parapertussis DNA (PCR) NOT DETECTED Nasal Coronavir 229E PCR NOT DETECTED Nasal Coronavir HKU1 PCR NOT DETECTED Nasal Coronavir NL63 PCR NOT DETECTED Nasal Coronavir OC43 PCR NOT DETECTED Nasal Enterovir/Rhinovir PCR NOT DETECTED Nasal Influenza B PCR NOT DETECTED Nasal Influenza A PCR NOT DETECTED Nasal Parainfluen 1 PCR NOT DETECTED Nasal Parainfluen 2 PCR NOT DETECTED Nasal Parainfluen 3 PCR NOT DETECTED Nasal Parainfluen 4 PCR NOT DETECTED Nasal RSV (PCR) NOT DETECTED Nasal B.pertussis DNA PCR NOT DETECTED Nasal C.pneumoniae (PCR) NOT DETECTED Nick Human Metapneumo PCR NOT DETECTED Nasal M.pneumoniae (PCR) NOT DETECTED Nasal SARS-CoV-2 (PCR) DETECTED A Urine Opiates Screen Ur Buprenorphine Scrn Ur Oxycodone Screen Urine Methadone Screen Ur Barbiturates Screen Ur Tricyclics Screen Ur Phencyclidine Scrn Ur Amphetamine Screen U Methamphetamines Scrn U Benzodiazepines Scrn Urine Cocaine Screen U Cannabinoids Screen Ur Drug Screen Comment Ethyl Alcohol - Rads (name of study) chest xray Relevant Findings:: Prelim report reviewed (no acute infiltrates nor effusions. ), EMP independent interpretation of test head CT Relevant Findings:: Prelim report reviewed (no acute intracranial pathology. ), EMP independent interpretation of test PD Medical Decision Making - ED course Complexity details: reviewed results (has cough, hypoxia, weakness, somnolence. Some wheezing. Consider pneumonia or bronchiolitis. CXR without infiltrates. Resp viral panel just resulted positive for COVID. This may be the main process. 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 Pt will need hospitalization.), re-evaluated patient (she did have increaased alertness with application of oxygen via NC. Also given some IV fluids IV. Nebulizer albuterol improved aeration with less wheezing, but no less hypoxia. ), considered differential (altered mentation with somnolenc. Consider infections, hypoxia, hypoglycemia, low dosium, among other things. ), d/w patient Reviewed Lab Results: WBC is normal as is H/H, so not cause of her symptoms. Lytes good. BNP is only about 107, so not appearing related to CHF. No infiltrates on CXR, so not pneumonia as yet. UA with some possible infection. ED course: The patient had fallen yesterday with injury to the ankle. Seen here in the ER with x-rays. This shows patient states she has been having a cough for several days and today was feeling more short of breath. She was noted to be diminished responsiveness as well at her care facility. Brought here for evaluation. She has noted to be hypoxic on room air by medics at approximately 86% on room air. Improved with nasal cannula. Blood sugar on the way was 157. Here she seems somnolent and sleepy but when aroused is able to answer questions. She is opening her eyes to tactile stimuli. There is some scattered wheezing. She was given a nebulizer treatment. She is still seem to be approximately 86 to 88% on room air and typically does not use oxygen. Her CODE STATUS is comfort measures but limited interventions. DNR and DNI. We are testing for sources of infection. Her urine shows possible infection there and was a catheter specimen. Basic blood count and white count is good. A venous blood gas showed a pCO2 to of 35 so was not hypercarbic. No sedating medicines are seen on her MAR from the facility. She had not received any opiate pain medicines for her injury. Unclear the cause for her sedation. She is more alert after being on the oxygen so it may have been just hypoxia. Respiratory viral panel is still pending. Chest x-ray does not show any infiltrates. Care is given over to the oncoming emergency physician. At this point the respiratory viral panel is still pending. She will presumably need hospitalization for I would assume a of viral bronchiolitis with hypoxia. Departure - Departure Disposition: 66 [facility] DC/Xfer Clinical Impression: COVID, Hypoxia, Dehydration UTI (urinary tract infection) Qualifiers: Urinary tract infection type: acute cystitis Hematuria presence: with hematuria Qualified Code(s): N30.01 - Acute cystitis with hematuria
[2023-11-18 17:06] LABS: BASOPHILS % (AUTO) 0.2 %; EOSINOPHILS % (AUTO) 0.1 %; HCT - HEMATOCRIT 37.1 % (37.0-47.0); LYMPHOCYTES # (AUTO) 0.7 10^3/uL (1.5-3.5); LYMPHOCYTES % (AUTO) 9.1 %; MEAN CORPUSCULAR HEMOGLOBIN 28.7 pg (27.0-31.0); MEAN CORPUSCULAR HGB CONC 32.3 g/dL (32.0-36.0); MEAN CORPUSCULAR VOLUME 88.8 fL (81.0-99.0); MEAN PLATELET VOLUME 11.7 fL (7.9-10.8); MONOCYTES # (AUTO) 0.7 10^3/uL (0.0-1.0); MONOCYTES % (AUTO) 8.1 %; NEUTROPHILS # (AUTO) 6.6 10^3/uL (1.5-6.6); NEUTROPHILS % (AUTO) 82.3 %; PLT - PLATELET COUNT 181 10^3/uL (130-450); RED BLOOD COUNT 4.18 10^6/uL (4.20-5.40); RED CELL DISTRIBUTION WIDTH 14.5 % (12.0-15.0); WHITE BLOOD COUNT 8.1 x10^3/uL (4.8-10.8)
[2023-11-18 17:07] LABS: VBG BASE EXCESS -3.9 mmol/L (-2 - +2); VBG HCO3 19.9 mmol/L (23-28); VBG OXYGEN SATURATION 87.2 % (60-80); VBG PCO2 32.3 mmHg (41-51); VBG PH 7.407 (7.31-7.41); VBG PO2 53.9 mmHg (25-47); VBG TOTAL CO2 20.9 mmol/L (24-29)
[2023-11-18] MEDS: SODIUM CHLORIDE 0.9% 500 ML IV STA (17:14)
[2023-11-18 17:23] LABS: BILIRUBIN,URINE NEGATIVE (NEGATIVE); GLUCOSE, URINE (UA) NEGATIVE (NEGATIVE); KETONES,URINE (UA) NEGATIVE (NEGATIVE); LEUKOCYTE ESTERASE, URINE NEGATIVE (NEGATIVE); NITRITE,URINE NEGATIVE (NEGATIVE); OCCULT BLOOD,URINE LARGE (NEGATIVE); PROTEIN,URINE 30 mg/dL (NEGATIVE); UROBILINOGEN,URINE 0.2 (NORMAL) E.U./dL (NORMAL)
[2023-11-18 17:26] LABS: MAGNESIUM 1.8 mg/dL (1.7-2.3)
[2023-11-18 17:32] LABS: ALBUMIN 3.8 g/dL (3.2-5.5); ALBUMIN/GLOBULIN RATIO 1.3 (1.0-2.2); ALKALINE PHOSPHATASE 75 IU/L (42-121); ALT ALANINE AMINOTRANSFERASE 20 IU/L (10-60); AST ASPARTATE AMINOTRANSFERASE 29 IU/L (10-42); BILIRUBIN,TOTAL 0.5 mg/dL (0.2-1.0); BUN - BLOOD UREA NITROGEN 27 mg/dL (6-20); CALCIUM 8.4 mg/dL (8.5-10.3); CARBON DIOXIDE - CO2 21 mmol/L (21-32); CHLORIDE 102 mmol/L (101-111); CREATININE 1.5 mg/dL (0.6-1.3); ETOH - ETHANOL < 10.0 mg/dL; GFR - MDRD 34 (>89); GLUCOSE 151 mg/dL (74-104); LIPASE 38 U/L (11-82); POTASSIUM 3.7 mmol/L (3.5-4.5); SODIUM 134 mmol/L (135-145); TOTAL PROTEIN 6.8 g/dL (6.4-8.9)
[2023-11-18 17:33] LABS: CLARITY,URINE CLOUDY (CLEAR)
[2023-11-18 17:34] LABS: BACTERIA,URINE Many /HPF (None Seen); SQUAMOUS EPITHELIAL CELL,UR FEW Squamous (<= Few)
[2023-11-18 17:35] LABS: AMPHETAMINE SCREEN,URINE NEGATIVE (NEGATIVE); BENZODIAZEPINES SCREEN, URINE NEGATIVE (NEGATIVE); COCAINE SCREEN URINE NEGATIVE (NEGATIVE); METHAMPHETAMINES SCREEN, URINE NEGATIVE (NEGATIVE); OPIATE SCREEN, URINE NEGATIVE (NEGATIVE); THC CANNABINOID SCREEN, URINE NEGATIVE (NEGATIVE)
[2023-11-18 17:36] LABS: BARBITURATE SCREEN,UR NEGATIVE (NEGATIVE); BUPRENORPHINE SCREEN, URINE NEGATIVE (NEGATIVE); METHADONE SCREEN, URINE NEGATIVE (NEGATIVE); OXYCODONE SCREEN, URINE NEGATIVE (NEGATIVE); TRICYCLIC ANTIDEPRESSANT,URINE NEGATIVE (NEGATIVE)
--- NOTE | 2023-11-18 17:41 | CT Report ---
PROCEDURE: Head WO INDICATIONS: fall yesterday, altered mentation today TECHNIQUE: Noncontrast 4.5 mm thick angled axial sections acquired from the foramen magnum to the vertex. For r adiation dose reduction, the following was used: automated exposure control, adjustment of mA and/or kV according to patient size. COMPARISON: CT head 08/07/2023. FINDINGS: Image quality: Excellent. CSF spaces: Basal cisterns are patent. No extra-axial fluid collections. Ventricles are normal in size and shape. Brain: No midline shift. No intracranial masses or hemorrhage. Wilhelm-white matter interface is norm al. Skull and face: Calvarium and visualized facial bones are intact, without suspicious lesions. Sinuses: Visualized sinuses and mastoids are clear. IMPRESSION: No acute intracranial pathology. Reviewed by: Jen Madrid MD on 11/18/2023 4:40 PM [facility] Approved by: Jen Madrid MD on 11/18/2023 4:40 PM [facility] Station ID: [id number]
--- NOTE | 2023-11-18 17:42 | XRAY Report ---
PROCEDURE: Chest 1V INDICATIONS: chest pain TECHNIQUE: One view of the chest was acquired. COMPARISON: None. FINDINGS: Surgical changes and devices: None. Lungs and pleura: No pleural effusions or pneumothorax. Lungs are clear. Mediastinum: Mediastinal contours appear normal. Heart size is normal. Aortic arch is calcified i ndicating atherosclerosis. Bones and chest wall: No suspicious bony lesions. Overlying soft tissues appear unremarkable. IMPRESSION: No acute cardiopulmonary process. Reviewed by: Jen Madrid MD on 11/18/2023 4:40 PM [facility] Approved by: Jen Madrid MD on 11/18/2023 4:40 PM [facility] Station ID: [id number]
[2023-11-18] MEDS: ALBUTEROL NEB 2.5 MG/3 ML INH STA (18:17)
[2023-11-18] MEDS: cefTRIAXone 1 GM VIAL IVP STA (19:14)
[2023-11-18 19:28] LABS: B. PARAPERTUSSIS- RESP PCR PAN NOT DETECTED; B. PERTUSSIS- RESP PCR PANEL NOT DETECTED; C. PNEUMONIAE- RESP PCR PANEL NOT DETECTED; CORONAVIRUS 229E-RESP PCR NOT DETECTED; CORONAVIRUS HKU1-RESP PCR NOT DETECTED; CORONAVIRUS NL63-RESP PCR NOT DETECTED; CORONAVIRUS OC43-RESP PCR NOT DETECTED; HUMAN METAPNEUMOVIRUS NOT DETECTED; INFLUENZA A- RESP PCR PANEL NOT DETECTED; INFLUENZA B - RESP PCR PANEL NOT DETECTED; M. PNEUMONIAE- RESP PCR PANEL NOT DETECTED; PARAINFLUENZA VIRUS 1 NOT DETECTED; PARAINFLUENZA VIRUS 2 NOT DETECTED; PARAINFLUENZA VIRUS 3 NOT DETECTED; PARAINFLUENZA VIRUS 4 NOT DETECTED; RHINOVIRUS/ENTEROVIRUS NOT DETECTED; RSV- RESP PCR PANEL NOT DETECTED
[2023-11-18 19:30] LABS: SARS-CoV-2 -RESP PCR PANEL DETECTED
[2023-11-18] MEDS: SODIUM CHLORIDE 0.9% 1,000 ML IV STA (19:30)
--- NOTE | 2023-11-18 21:00 | ED Physician Documentation ---
ED Addendum - Addendum Addendum: 11/18/23 20:50 Coby Agee is left in my care at shift change. She was seen by Dr. Blum and evaluated for a alteration in her mental status 1 day after a fall injuring her right ankle. The patient indicates that she has been sick with an upper respiratory tract infection for the past 6 days and had a fall yesterday associated with feeling ill. Today she has noted to have an altered mental status decreased alertness. She is unable to get herself out of bed. She lives at [facility] in assisted living and she has been checked on every 2 hours over the last day. Workup today revealed hypoxia, volume depletion and the patient is positive for COVID.She has been vaccinated but has not had COVID.Here in the emergency department the patient was given a breathing treatment, continued to have some mild hypoxia and she was noted to be volume depleted on interrogation of the inferior vena cava vena cava with POCUS. She had a 9.2 mm vessel consistent with a 2 L deficit. She had already been administered 500 mL and I suspect her deficit is close to the desiccation encephalopathy range.With administration of IV fluid and placement of oxygen the patient's altered mental status resolved. She has had CT of the head as well for evaluation of that altered mental status. The patient has had prior urinary tract infection causing altered mental status today a catheterized urine specimen showed white blood cells and red blood cells but did not make the grade for culture. The urine was cultured and the patient was treated with Rocephin. Impression: COVID with hypoxia, volume depletion, urinary tract infection. Plan: Oxygen IV fluid Rocephin and admission to the hospital.
--- NOTE | 2023-11-18 21:19 | HISTORY & PHYSICAL EXAMINATION ---
Chief Complaint - Chief Complaint Chief Complaint: weakness History of Present Illness - Admitted From Admitted From:: [facility] - History of Present Illness HPI Comment/Other: 73 y/o F presented with weakness and AMS she complained of cough last few days and had a fall due to weakness yesterday. She was found to have hypoxia and dehydration and received O2 and IVF and improved. Her AMS resolved and currently only some cough and weskness otherwise denies any other complaints. She has had low PO intake recently. Deneis dysuria or cp or heaache History - Past Medical History Cardiovascular: reports: Hypertension, High cholesterol Respiratory: reports: None Neuro: reports: None Endocrine/Autoimmune: reports: HyPOthyroidism GI: reports: None M[employer] P[employer]ER: reports: None : reports: Other HEENT: reports: Glaucoma Psych: reports: None Musculoskeletal: reports: None Derm: reports: None MRSA Hx?: No - POLST Patient has POLST: No Meds/Allgy - Home Medications Home Medications: Ambulatory Orders Medication Instructions Recorded Confirmed Levothyroxine [Synthroid] 1 tab PO DAILY 07/30/22 11/17/23 carvediloL [Coreg] 1 tab PO BID 07/30/22 11/17/23 Losartan Potassium 25 mg PO DAILY 08/07/23 11/17/23 - Allergies Allergies/Adverse Reactions: Allergies Allergy/AdvReac Type Severity Reaction Status Date / Time No Known Drug Allergies Allergy Verified 11/18/23 16:46 Review of Systems - Respiratory Respiratory: reports: Cough Exam - Vital Signs Vital Signs: Vital Signs x48h Temp Pulse Resp BP Pulse Ox O2 Flow Rate 11/18/23 20:00 82 18 150/74 H 96 2 11/18/23 18:50 36.8 C 69 18 130/60 96 3 11/18/23 18:20 72 18 3 11/18/23 16:50 36.8 C 69 18 116/54 L 93 3 11/18/23 16:46 36.8 C 69 20 116/54 L 88 L - Physical Exam General Appearance: positive: No acute distress Eyes Bilateral: positive: Normal inspection Neck: positive: Nml inspection Respiratory: positive: No respiratory distress Cardiovascular: positive: Regular rate & rhythm Abdomen: positive: No distention Skin: positive: No rash Extremities: positive: Nml appearance Neurologic/Psychiatric: positive: Oriented x3 Conclusion/Plan - Lab Results Fish Bones: 11/18/23 17:02 11/18/23 17:02 - Other Other Results/Comments: 73 y/o F # hypoxia: probably due to covid. o2, NEBS, Rocehin, doxy, decadron, tele, isilation # dehydration: ivf gentle and monitor # possible UTI: ivf, rocephin # hypothyro: levthyroxine, check tsh # DVT prophylaxis: heparin SQ
[2023-11-18] MEDS ORDERED: ZOLPIDEM 5 MG TABLET PO PRN (21:23)
[2023-11-18] MEDS: DEXAMETHASONE 10 MG/ML VIAL IVP STA (21:27)
[2023-11-18] MEDS ORDERED: IPRATROPIUM/ALBUTEROL 3 ML NEB INH PRN (21:27)
[2023-11-18] MEDS: SODIUM CHLORIDE FLUSH 0.9% 10 ML SYRINGE IVP PRN (22:32)
[2023-11-18] MEDS: DOXYCYCLINE 100 MG TABLET PO STA (22:32)
[2023-11-18] MEDS: SODIUM CHLORIDE 0.9% 1,000 ML IV SCH (22:32)
[2023-11-19] MEDS: ACETAMINOPHEN 325 MG TABLET PO PRN (00:01)
[2023-11-19] MEDS: SODIUM CHLORIDE FLUSH 0.9% 10 ML SYRINGE IVP SCH (00:33)
--- NOTE | 2023-11-19 00:41 | PROVIDER PROGRESS NOTE ---
System Architect Note - System Architect Note System Architect Note: per polst which was initially not available and observed by nurse and confirmed by pt DNR
[2023-11-19 05:27] LABS: BASOPHILS % (AUTO) 0.2 %; HCT - HEMATOCRIT 36.8 % (37.0-47.0); HGB - HEMOGLOBIN 11.8 g/dL (12.0-16.0); LYMPHOCYTES # (AUTO) 0.5 10^3/uL (1.5-3.5); LYMPHOCYTES % (AUTO) 9.6 %; MEAN CORPUSCULAR HEMOGLOBIN 28.2 pg (27.0-31.0); MEAN CORPUSCULAR HGB CONC 32.1 g/dL (32.0-36.0); MEAN CORPUSCULAR VOLUME 87.8 fL (81.0-99.0); MONOCYTES # (AUTO) 0.2 10^3/uL (0.0-1.0); MONOCYTES % (AUTO) 3.3 %; NEUTROPHILS # (AUTO) 4.5 10^3/uL (1.5-6.6); NEUTROPHILS % (AUTO) 86.5 %; PLT - PLATELET COUNT 185 10^3/uL (130-450); RED BLOOD COUNT 4.19 10^6/uL (4.20-5.40); RED CELL DISTRIBUTION WIDTH 14.4 % (12.0-15.0); WHITE BLOOD COUNT 5.2 x10^3/uL (4.8-10.8)
[2023-11-19 05:43] LABS: CALCIUM 8.1 mg/dL (8.5-10.3); CREATININE 1.2 mg/dL (0.6-1.3)
[2023-11-19] MEDS ORDERED: NON FORMULARY MED (Remdesivir 200 MG) IVP ONE (07:09)
[2023-11-19] MEDS: LEVOTHYROXINE 100 MCG TABLET PO SCH (08:05)
[2023-11-19] MEDS: REMDESIVIR 200 MG in SODIUM CHLORIDE 0.9% 250 ML IV ONE (08:46)
[2023-11-19] MEDS: DEXAMETHASONE 4 MG/ML VIAL IVP SCH (08:46)
[2023-11-19] MEDS: HEPARIN 5,000 UNIT/ML VIAL SUBQ SCH (08:47)
[2023-11-19] MEDS ORDERED: DEXAMETHASONE 4 MG/ML VIAL IVP SCH (09:00)
[2023-11-19] MEDS ORDERED: LEVOTHYROXINE 100 MCG TABLET PO SCH (09:00)
--- NOTE | 2023-11-19 10:02 | PHARMACY PROGRESS NOTE ---
- Best Possible Medication History Admit Date and Time: 11/18/232122 Processed by: Pharmacy Medication History completed: Yes Patient Interview: Pt unable to participate Secondary Source(s): Pharmacy records, Insurance records As the person ultimately responsible for medication therapy, providers are able to order a medication from an existing home medication list in [facility] via the "Reconcile Routine" prior to Confirmation of that medication by it support engineer. Such practice is discouraged except when the physician, in their clinical judgment, deems that a medical need exists for a medication without regard to previous use.
[2023-11-19] MEDS: cefTRIAXone 1 GM in SODIUM CHLORIDE 0.9% MINIBAG 100 ML IV SCH (10:45)
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
[2023-11-19] MEDS: ENOXAPARIN 40 MG/0.4 ML SYRINGE SUBQ SCH (14:41)
[2023-11-19] MEDS: TRIAMCINOLONE 0.1% CREAM 15 GM TUBE TOP SCH (14:41)
--- NOTE | 2023-11-19 18:59 | Ultrasound Report ---
PROCEDURE: Duplex Ext Veins Bilateral INDICATIONS: Bilateral calf pain TECHNIQUE: Real-time imaging, as well as color and pulse Doppler interrogation, were performed of the deep veins of both legs from the inguinal ligament to the popliteal fossa. Attempted visualization of the calf veins was performed. COMPARISON: None FINDINGS: Limited evaluation of the lower extremity veins. The left popliteal, posterior tibial and p eroneal veins are not visualized. The right distal femoral, popliteal, posterior tibial and peroneal veins are not visualized. The right common femoral, profunda, and proximal and mid femoral veins are normally compressible, and free of intraluminal thrombus. Color and pulse Doppler demonstrate normal phasic intravascular flow . There is normal augmentation response to distal compression maneuver. The left common femoral, profunda and femoral veins are normally compressible, and free of intralumin al thrombus. Color and pulse Doppler demonstrate normal phasic intravascular flow. There is normal augmentation response to distal compression maneuver IMPRESSION: Limited evaluation of the bilateral lower extremity venous vasculature. No deep venous thrombosis vis ualized in the bilateral common femoral, bilateral profunda, right proximal and mid femoral and left femoral veins. Reviewed by: Jen Madrid MD on 11/19/2023 5:58 PM [facility] Approved by: Jen Mdarid MD on 11/19/2023 5:58 PM [facility] Station ID: [id number]
[2023-11-19] MEDS: NYSTATIN POWDER 15 GM TOP SCH (20:30)
[2023-11-19] MEDS: carvediloL 3.125 MG TABLET PO SCH (20:30)
[2023-11-19] MEDS: LOSARTAN 50 MG TABLET PO SCH (20:31)
[2023-11-20 05:18] LABS: HCT - HEMATOCRIT 35.6 % (37.0-47.0); HGB - HEMOGLOBIN 11.5 g/dL (12.0-16.0); LYMPHOCYTES # (AUTO) 1.3 10^3/uL (1.5-3.5); LYMPHOCYTES % (AUTO) 12.9 %; MEAN CORPUSCULAR HEMOGLOBIN 28.7 pg (27.0-31.0); MEAN CORPUSCULAR HGB CONC 32.3 g/dL (32.0-36.0); MEAN CORPUSCULAR VOLUME 88.8 fL (81.0-99.0); MEAN PLATELET VOLUME 12.3 fL (7.9-10.8); MONOCYTES # (AUTO) 0.7 10^3/uL (0.0-1.0); MONOCYTES % (AUTO) 7.2 %; NEUTROPHILS # (AUTO) 7.9 10^3/uL (1.5-6.6); NEUTROPHILS % (AUTO) 79.6 %; PLT - PLATELET COUNT 191 10^3/uL (130-450); RED BLOOD COUNT 4.01 10^6/uL (4.20-5.40); RED CELL DISTRIBUTION WIDTH 14.5 % (12.0-15.0)
[2023-11-20 05:40] LABS: POTASSIUM 3.8 mmol/L (3.5-4.5)
[2023-11-20] MEDS: REMDESIVIR 100 MG in SODIUM CHLORIDE 0.9% 100ML 100 ML IV SCH (09:35)
[2023-11-20] MEDS: CHOLECALCIFEROL 25 MCG TABLET PO SCH (10:54)
[2023-11-20] MEDS ORDERED: MAG HYDROX/AL HYDROX/SIMETH 30 ML UDC PO PRN (11:49)
--- NOTE | 2023-11-20 17:06 | PROVIDER PROGRESS NOTE ---
Subjective - Prog Note Date Prog Note Date: 11/20/23 Prog Note Time: 17:04 - Subjective Pt reports feeling: No change Subjective: She is still on 3 L nasal cannula. But she is able to ambulate in her room but needs an assist. Physical therapy has evaluated her and finds her to be significantly below her baseline and is recommending senior care facility. Current Medications - Current Medications Current Medications: Active Medications Acetaminophen (Acetaminophen 325 Mg Tablet) 650 mg PO Q4HR PRN PRN Reason: Pain 1 to 4, or Fever Last Admin: 11/19/23 09:35 Dose: 650 mg Al Hydroxide/Mg Hydroxide (Mag Hydrox/Al Hydrox/Simeth 30 Ml Udc) 30 ml PO Q4HR PRN PRN Reason: INDIGESTION Albuterol/Ipratropium (Ipratropium/Albuterol 3 Ml Neb) 3 ml INH Q4HR PRN PRN Reason: Wheezing Carvedilol (Carvedilol 3.125 Mg Tablet) 6.25 mg PO BID [facility] Last Admin: 11/20/23 09:09 Dose: 6.25 mg Cholecalciferol (Cholecalciferol 25 Mcg Tablet) 50 mcg PO DAILY [facility] Last Admin: 11/20/23 10:54 Dose: 50 mcg Dexamethasone (Dexamethasone 4 Mg/Ml Vial) 6 mg IVP DAILY [facility] Last Admin: 11/20/23 09:10 Dose: 6 mg Enoxaparin Sodium (Enoxaparin 40 Mg/0.4 Ml Syringe) 40 mg SUBQ DAILY [facility] Last Admin: 11/20/23 09:10 Dose: 40 mg Furosemide (Furosemide 20 Mg Tablet) 20 mg PO DAILY [facility] Remdesivir 100 mg/ Sodium (Chloride) 100 mls @ 200 mls/hr IV DAILY [facility] Stop: 11/23/23 09:29 Last Infusion: 11/20/23 10:40 Dose: Infused Levothyroxine Sodium (Levothyroxine 100 Mcg Tablet) 100 mcg PO QDAC [facility] Last Admin: 11/20/23 06:19 Dose: 100 mcg Losartan Potassium (Losartan 50 Mg Tablet) 25 mg PO BID [facility] Last Admin: 11/20/23 09:10 Dose: 25 mg Nystatin (Nystatin Powder 15 Gm) 1 applic TOP BID [facility] Last Admin: 11/20/23 09:14 Dose: 1 applic Polyethylene Glycol (Polyethylene Glycol 3350 17 Gm Packet) 17 gm PO DAILY [facility] Sodium Chloride (Sodium Chloride Flush 0.9% 10 Ml Syringe) 10 ml IVP PRN PRN PRN Reason: NEEDED PER PROVIDER ORDERS Last Admin: 11/18/23 22:32 Dose: 10 ml Sodium Chloride (Sodium Chloride Flush 0.9% 10 Ml Syringe) 10 ml IVP 0100,0900,1700 [facility] Last Admin: 11/20/23 16:13 Dose: 10 ml Triamcinolone Acetonide (Triamcinolone 0.1% Cream 15 Gm Tube) 1 applic TOP BID [facility] Last Admin: 11/20/23 09:14 Dose: 1 applic Zolpidem Tartrate (Zolpidem 5 Mg Tablet) 5 mg PO QPM PRN PRN Reason: Insomnia Levothyroxine [Synthroid] 100 mcg PO QDAC 07/30/22 carvediloL [Coreg] 6.25 mg PO BID 07/30/22 Losartan Potassium 25 mg PO BID 08/07/23 Furosemide [Lasix] 20 mg PO DAILY 11/19/23 Triamcinolone 0.1% Cream [Kenalog 0.1% Cream] 1 applic TOP BID 11/19/23 Objective - Vital Signs/Intake & Output Reviewed Vital Signs: Yes Vital Signs: Vital Signs x48h Temp Pulse Resp BP Pulse Ox O2 Flow Rate 11/20/23 16:09 36.5 C 68 16 186/91 H 94 2 11/20/23 13:00 36.8 C 68 18 171/73 H 96 3 Intake & Output: Intake & Output 11/17/23 11/18/23 11/19/23 11/20/23 23:59 23:59 23:59 23:59 Intake Total 1500 3763.333 2601.667 Output Total 1050 1600 Balance 1500 2713.333 1001.667 - Objective General Appearance: positive: No acute distress, Other (Very fatigued appearing.She is eating anywhere between 50 to 100% of her food. Fluid balance is positive for 1500 cc on the . Positive for 2700 cc on the .) Eyes Bilateral: positive: PERRL, EOMI ENT: positive: Pharynx nml, No signs of dehydration Neck: positive: No JVD. negative: Stiff neck Respiratory: positive: No respiratory distress, Rhonchi, Other (Still wiped out with minimal exertion.). negative: Wheezes, Rales Cardiovascular: positive: Regular rate & rhythm Abdomen: positive: Non-tender, No organomegaly, Nml bowel sounds, No distention Skin: positive: Warm, Dry, Other (Yoselin groin rash) Extremities: positive: Full ROM, Pedal edema Neurologic/Psychiatric: positive: Oriented x3, CN's nml (2-12), Motor nml - Lab Results Fish Bones: 11/20/23 05:02 11/20/23 05:02 Other Labs: Lab Results x24hrs 11/20/23 11/20/23 Range/Units 05:02 05:02 WBC 10.0 (4.8-10.8) x10^3/uL RBC 4.01 L (4.20-5.40) 10^6/uL Hgb 11.5 L (12.0-16.0) g/dL Hct 35.6 L (37.0-47.0) % MCV 88.8 (81.0-99.0) fL MCH 28.7 (27.0-31.0) pg MCHC 32.3 (32.0-36.0) g/dL RDW 14.5 (12.0-15.0) % Plt Count 191 (130-450) 10^3/uL MPV 12.3 H (7.9-10.8) fL Neut # (Auto) 7.9 H (1.5-6.6) 10^3/uL Lymph # (Auto) 1.3 L (1.5-3.5) 10^3/uL Piatt # (Auto) 0.7 (0.0-1.0) 10^3/uL Eos # (Auto) 0.0 (0.0-0.7) 10^3/uL Baso # (Auto) 0.0 (0.0-0.1) 10^3/uL Absolute Nucleated RBC 0.00 x10^3/uL Nucleated RBC % 0.0 /100WBC Sodium 139 (135-145) mmol/L Potassium 3.8 (3.5-4.5) mmol/L Chloride 110 (101-111) mmol/L Carbon Dioxide 21 (21-32) mmol/L Anion Gap 8.0 (6-13) BUN 22 H (6-20) mg/dL Creatinine 1.0 (0.6-1.3) mg/dL Estimated GFR (MDRD) 54 L (>89) Glucose 116 H (74-104) mg/dL Calcium 8.0 L (8.5-10.3) mg/dL ABX Reporting Has patient been on IV antibiotics over the past 48 hours?: Yes Assessment/Plan - Problem List (1) Acute respiratory failure with hypoxemia Impression: Due to COVID infection. Chest x-ray is very clear. Because of the level hypoxia , I anticipate some infiltrative changes in the next few days with a lag time to show up on chest x-ray. Admission she had very mild hyponatremia and ve ry mild acute kidney insufficiency superimposed on chronic kidney disease. Has normalized by the second day of admission. Her oxygen requirement has not gone down yet.She is doing very well with p.o. intake. Plan: I will continue with supplemental oxygen Do not attempt resuscitation status Noted and I have changed it from full code to DNR See plan and #2 Stop IV fluids (2) COVID Impression: On steroids. I changed the dose from 4 mg to 6 mg daily. Plan for 10 days total.Today is day 3 She is day 3/5 of remdesivir Oxygen as needed. She does not have any evidence of bacterial pneumonia on chest x-ray. I stopped Rocephin and doxycycline on the (3) Generalized muscle weakness Impression: This is per PT note report: Pt reports living at [facility]; staff mostly assist with ADLS such as showers, housekeeping, and meals. Pt states she was modified indep for mobility and ADLS with use of adaptive equipment; she ambulates with 4WW short distances within room and uses electric WC when she gets tired, within facility or in community. Pt uses public transportation regularly. Pt has an adjustable bed with rails and leg supervisor alteration workroom. She would use 4WW for transfers to/from electric chair or recliner. At end of session, pt was left with JOINER for nursing care. 73 yo F presented with weakness and AMS, GLF w/possible injury to R ankle. Pt admitted for acute encephalopathy and hypoxia due to COVID. On assessment, SpO2 95-97% on 3.5L; pt alert and oriented but forgetful at times. Pt modA for supine to sit with HOB elevated, use of bed rail and leg supervisor alteration workroom to manage LLE. Pt complained of dizziness at EOB; BP 166/76; HR: 74. Pt stood from bed to FWW with modA demonstrating R lateral lean and L leg extended causing flexion at trunk. Unable to progress to SPT or ambulation due to pain in arch of right foot and significant weakness of b/l legs. Pt complained of b/l calf pain a few times during session; this was reported to MD. Pt was returned to supine modA due to weakness and repositioned for comfort. Raquel lift is recommended for OOB mobility with nursing at this time. PT will continue to follow to address current deficits as pt is performing below reported baseline. Once medically stable, pt will need SNF to continue Rehab in order to increase functional independence to safely return to [facility]. Plan: Case was discussed at care conference. Our plan is to discharge to SNF. (4) Ankle injury Impression: Fall in room resulted in ankle films and foot films. They are negative for acute fracture. However occult injury cannot be excluded so short interval imaging follow-up in 7 to 10 days is indicated. That would make it November 23. If the patient is still in the hospital at that time I will do films. But it is anticipated she will be gone by then and will need to follow-up in the outpatient setting. Meantime she will continue with an Umesh wrap. Tylenol for pain management. And we will take that into account when she works with PT Qualifiers: Encounter type: initial encounter Laterality: left Qualified Code(s): S99.912A - Unspecified injury of left ankle, initial encounter (5) Bilateral calf pain Impression: This is a COVID-patient. Notably at risk for hypercoagulable state with DVT.Bilateral lower extremity Dopplers were negative for DVT Plan: Lovenox for DVT prophylaxis (6) Hypertension Impression: Today's blood pressure 158/79, 171/73, 186/91.. At home she is on Coreg, losartan, Lasix. This combination usually indicates congestive heart failure but it is not on her problem list. I was unable to call her primary care provider's office to get an update on who she is. Will remember to do so tomorrow Qualifiers: Hypertension type: primary hypertension Qualified Code(s): I10 - Essential (primary) hypertension
[2023-11-20] MEDS: polyethylene glycoL 3350 17 GM PACKET PO SCH (17:32)
[2023-11-21 05:30] LABS: BASOPHILS % (AUTO) 0.1 %; HCT - HEMATOCRIT 37.8 % (37.0-47.0); HGB - HEMOGLOBIN 12.4 g/dL (12.0-16.0); LYMPHOCYTES # (AUTO) 1.6 10^3/uL (1.5-3.5); LYMPHOCYTES % (AUTO) 15.3 %; MEAN CORPUSCULAR HEMOGLOBIN 28.9 pg (27.0-31.0); MEAN CORPUSCULAR HGB CONC 32.8 g/dL (32.0-36.0); MEAN CORPUSCULAR VOLUME 88.1 fL (81.0-99.0); MEAN PLATELET VOLUME 12.1 fL (7.9-10.8); MONOCYTES # (AUTO) 0.9 10^3/uL (0.0-1.0); MONOCYTES % (AUTO) 8.1 %; NEUTROPHILS # (AUTO) 8.1 10^3/uL (1.5-6.6); NEUTROPHILS % (AUTO) 75.8 %; PLT - PLATELET COUNT 226 10^3/uL (130-450); RED BLOOD COUNT 4.29 10^6/uL (4.20-5.40); RED CELL DISTRIBUTION WIDTH 14.5 % (12.0-15.0); WHITE BLOOD COUNT 10.7 x10^3/uL (4.8-10.8)
[2023-11-21 05:45] LABS: CALCIUM 8.5 mg/dL (8.5-10.3); CREATININE 0.9 mg/dL (0.6-1.3); POTASSIUM 3.7 mmol/L (3.5-4.5)
[2023-11-21] MEDS: LOSARTAN 50 MG TABLET PO SCH (08:18)
[2023-11-21] MEDS: hydrALAZINE 10 MG TABLET PO PRN (08:25)
[2023-11-21 08:27] VITALS: BP 186/90; O2SAT 92
[2023-11-21] MEDS ORDERED: polyethylene glycoL 3350 17 GM PACKET PO SCH (09:00)
--- NOTE | 2023-11-21 14:18 | Discharge Plan ---
Discharge Plan Problem Reviewed?: Yes Disposition: [facility] Swing Bed DC/Xfer Condition: Fair No Smoking: If you smoke, Please STOP! Call for help.
--- NOTE | 2023-11-21 16:57 | DISCHARGE SUMMARY ---
"Discharge Summary Admit Date: 11/18/23 Discharge Date: 11/21/23 Discharging Provider: Rajani Au MD Primary Care Provider: Naomi MOY Code Status: Do Not Attempt Resuscitation Condition at Discharge: Fair Discharge Disposition: 61 Swing Bed DC/Xfer - DIAGNOSES Discharge Diagnoses with Status of Each Condition: 1. Acute respiratory failure with hypoxemia 2. COVID 3. Generalized muscle weakness 4. Ankle injury 5. Bilateral calf pain 6. Hypertension - HPI History of Present Illness: 73 y/o F presented with weakness and AMS she complained of cough last few days and had a fall due to weakness yesterday. She was found to have hypoxia and dehydration and received O2 and IVF and improved. Her AMS resolved and currently only some cough and weskness otherwise denies any other complaints. She has had low PO intake recently. Deneis dysuria or cp or heaache - Past Medical History Cardiovascular: reports: Hypertension, High cholesterol Respiratory: reports: None Neuro: reports: None Endocrine/Autoimmune: reports: HyPOthyroidism GI: reports: None DEAN OF GRADUATE STUDIES: reports: None : reports: Other HEENT: reports: Glaucoma Psych: reports: None Musculoskeletal: reports: None Derm: reports: None MRSA Hx?: No - CONSULTS | PROCEDURES Procedures: Head CT is without acute intracranial pathology Chest x-ray without acute cardiopulmonary process Venous duplex without DVT Urine culture with E. coli - HOSPITAL COURSE Hospital Course: (1) Acute respiratory failure with hypoxemia Impression: Due to COVID infection. Chest x-ray is very clear. Because of the level hypoxia , I anticipate some infiltrative changes in the next few days with a lag time to show up on chest x-ray. Admission she had very mild hyponatremia and very mild acute kidney insufficiency superimposed on chronic kidney disease. Has normalized by the second day of admission. Her oxygen requirement has not gone down yet.She is doing very well with p.o. intake. I was Able to speak to her primary care provider office PA. Moe before we transitioned her to swing bed status. CHINMAY Moe also described the patient as sedentary. No history of COPD or chronic hypoxia. Plan: I will continue with supplemental oxygen Do not attempt resuscitation status Noted and I have changed it from full code to DNR She is now transitioned to Swing Bed to start PT. Plan is to return to [facility]. (2) COVID Impression: On steroids. I changed the dose from 4 mg to 6 mg daily. Plan for 10 days total. Today is day 12/12 She is day 4/5 of remdesivir Oxygen as needed. She does not have any evidence of bacterial pneumonia on chest x-ray. I stopped Rocephin and doxycycline on the (3) Generalized muscle weakness Impression: This is per PT note report: Pt reports living at [facility]; staff mostly assist with ADLS such as showers, ho usekeeping, and meals. Pt states she was modified indep for mobility and ADLS with use of adaptive equipment; she ambulates with 4WW short distances within room and uses electric WC when she gets tired, within facility or in community. Pt uses public transportation regularly. Pt has an adjustable bed with rails and leg autism specialist. She would use 4WW for transfers to/from electric chair or recliner. At end of session, pt was left with CARTOGRAPHIC AIDE for nursing care. 73 yo F presented with weakness and AMS, GLF w/possible injury to R ankle. Pt admitted for acute encephalopathy and hypoxia due to COVID. On assessment, SpO2 95-97% on 3.5L; pt alert and oriented but forgetful at times. Pt modA for supine to sit with HOB elevated, use of bed rail and leg autism specialist to manage LLE. Pt complained of dizziness at EOB; BP 166/76; HR: 74. Pt stood from bed to FWW with modA demonstrating R lateral lean and L leg extended causing flexion at trunk. Unable to progress to SPT or ambulation due to pain in arch of right foot and significant weakness of b/l legs. Pt complained of b/l calf pain a few times during session; this was reported to MD. Pt was returned to supine modA due to weakness and repositioned for comfort. Raquel lift is recommended for OOB mobility with nursing at this time. PT will continue to follow to address current deficits as pt is performing below reported baseline. Once medically stable, pt will need SNF to continue Rehab in order to increase functional independence to safely return to [facility]. Case was discussed at care conference. Our plan is to change to swing bed status as of today (4) Ankle injury Impression: Fall in room resulted in ankle films and foot films. They are negative for acute fracture. However occult injury cannot be excluded so short interval imaging follow-up in 7 to 10 days is indicated. That would make it November 23. If the patient is still in the hospital at that time I will do films. But it is anticipated she will be gone by then and will need to follow-up in the outpatient setting. Meantime she will continue with an Umesh wrap. Tylenol for pain management. And we will take that into account when she works with PT. Able to speak to her Sister Eli Reina. Ms. Renia describes Ms. Michelle as a very sedentary person. She hates to exercise. Sister is always nagging her to work with physical therapy and do at least leg exercises. But over the years the patient has become more sedentary, more forgetful. It takes a lot to get her to be motivated. But she has an interesting response. If you ask her to do exercises and remind her to do that she just won't. But if the therapist is in front of her, she feels that is the only polite thing to do to work with a therapist. So Ms. Reina is hoping that her sister will improve her mobility while here. Qualifiers: Encounter type: initial encounter Laterality: left Qualified Code(s): S99.912A - Unspecified injury of left ankle, initial encounter (5) Bilateral calf pain Impression: This is a COVID-patient. Notably at risk for hypercoagulable state with DVT.Bilateral lower extremity Dopplers were negative for DVT Lovenox for DVT prophylaxis will continue in swing bed. She seems to be developing contracture of her calves from sitting so long so that when she stands, she can't place her heels on the floor. (6) Hypertension Impression: Yesterday, blood pressure was running high. I have not verified that she does not have congestive heart failure. I have increased her losartan to 50 mg twice daily. Qualifiers: Hypertension type: primary hypertension Qualified Code(s): I10 - Essential (primary) hypertension (7) E coli UTI She was given 2 days of Rocephin. UTI was noted at discharge. In swing bed status she will be given Macrobid for 3 days. Plan: She is transferred to swing bed in stable condition except for a high blood pressure of 186/90. Temperature is 36.6, heart rate 64. Respirations 18. 92% saturated on 2 L. She says that she does not have any pain right now. Neck has shotty adenopathy. Lungs have coarse upper airway sounds but no rhonchi or wheezing. No tachypnea. Irregular rate and rhythm. Abdomen is soft, nontender. Extremities without edema. Neurologically she is quiet affect, but oriented to person and place. Sometimes forgetful about situation. Greater than 30 minutes was spent coordinating transfer with discussion with primary care provider office, and power of defense attorney, her sister This document was made in part using voice recognition software. While efforts are made to proofread this document, sound alike and grammatical errors may occur. - ALLERGIES Allergies/Adverse Reactions: Allergies Allergy/AdvReac Type Severity Reaction Status Date / Time true AdvReac Anaphylaxis Uncoded 11/18/23 22:34 ricotta cheese AdvReac Emesis Uncoded 11/18/23 22:34 - MEDICATIONS Home Medications: Ambulatory Orders Medication Instructions Recorded Confirmed Levothyroxine [Synthroid] 100 mcg PO QDAC 07/30/22 11/21/23 carvediloL [Coreg] 6.25 mg PO BID 07/30/22 11/21/23 Losartan Potassium 25 mg PO BID 08/07/23 11/21/23 Furosemide [Lasix] 20 mg PO DAILY 11/19/23 11/21/23 Triamcinolone 0.1% Cream [Kenalog 1 applic TOP BID 11/19/23 11/21/23 0.1% Cream] - LABS Result Diagrams: 11/21/23 05:01 11/21/23 05:01"
[2023-11-22] MEDS ORDERED: FUROSEMIDE 20 MG TABLET PO SCH (09:00)
== END 2023-11-21 14:23 | disposition swing bed (61) | DRG 177 ==
LOC: EDUNIT# → ED 16:40 → MS2 21:23
PROVIDERS: ADMIT Hospitalist; ATTEND Specialist
DX: U07.1 COVID-19 (principal); I10 Essential (primary) hypertension; R09.02 Hypoxemia; J96.01 Acute respiratory failure with hypoxia; N30.01 Acute cystitis with hematuria; E87.1 Hypo-osmolality and hyponatremia; Z91.81 History of falling; N39.0 Urinary tract infection, site not specified; S99.919A Unspecified injury of unspecified ankle, initial encounter; E86.0 Dehydration; E78.00 Pure hypercholesterolemia, unspecified; E03.9 Hypothyroidism, unspecified; I12.9 Hypertensive chronic kidney disease with stage 1 through stage 4 chronic kidney disease, or unspecified chronic kidney disease; N18.9 Chronic kidney disease, unspecified; B96.20 Unspecified Escherichia coli [E. coli] as the cause of diseases classified elsewhere; V89.2XXA Person injured in unspecified motor-vehicle accident, traffic, initial encounter; M79.10 Myalgia, unspecified site; Z66 Do not resuscitate; Z79.890 Hormone replacement therapy; Z79.899 Other long term (current) drug therapy
CPT/HCPCS: 36415; 51701; 70450; 71045; 80048; 80053; 80306; 81001; 82803; 83690; 83735; 83880; 85025; 85379; 87077; 87086; 87181; 87633; 93005; 93970; 94640; 94664; 96361; 96374; 97163; 97530; 99285; A9270; G0480; J1650; 81003; 82077

== ENCOUNTER 2023-11-21 13:24 | Inpatient (IN) | payer MEDICARE, OTHER ==
[2023-11-21] MEDS ORDERED: oxyCODONE 5 MG TABLET PO PRN (14:18)
[2023-11-21] MEDS ORDERED: ACETAMINOPHEN 325 MG TABLET PO PRN (14:18)
--- NOTE | 2023-11-21 14:24 | HISTORY & PHYSICAL EXAMINATION ---
Chief Complaint - Chief Complaint Chief Complaint: general decondtioning due to illness History of Present Illness - Admitted From Admitted From:: Acute care [facility] - [facility] History obtained from: Elizabeth Exam Limitations: none - History of Present Illness HPI Comment/Other: This is a curt lady who lives alone in her room at her assisted living facility. She moved [place]. She is a relatively sedentary person. Spends most of her time in a chair. But she is able to go from sitting to standing using a walker. In the facility, if is a long distance, she uses a motorized scooter. She lives there because of memory loss, anxiety, and needs help with bathing, feeding, dressing and getting her medications. She does have a hospital bed in her room. She uses a leg customer program manager for her left leg at baseline. At her primary care provider today, miriam Coates nd she endorses the patient is relatively sedentary. But she is able to have adequate bed mobility and chair mobility. 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 She fell on November 16. Injured her leg and ankle. That caused her to have more issues with trying to get around. On the day of admission to acute care November 17 she had decreased alertness, somnolence, increasing cough. She was brought to the emergency room by family where she was afebrile, normotensive. However hypoxic to 88% on room air. She had some wheezing and lung exam. Chest x-ray was clear of pneumonia. Creatinine was acutely elevated. She is usually 0.8 or 0.9 and she was 1.5. White cell count was normal. Viral panel was positive for COVID. She was placed in acute care status from November 17. She was complaining of bilateral calf muscle pain. Venous Dopplers were negative. With physical therapy she is a moderate assist from sitting to standing and a moderate assist for supine to sitting. She does not want a walk on her left ankle because of pain. And leans to the right. Rehab is recommended to increase her functional independence and to [facility]. Culture returned her just to the baseline she was which is being chair mobile and bed level. She was started on remdesivir on the . Today is day #3 of 5 dosing. Other than oxygen requirement, this patient has been relatively stable. On 2 L nasal cannula without tachypnea or respiratory distress. I did notify her sister after the patient respiratory. Even though her sister is not a formal DPOA, she is the only living relative this patient has. And she is the person to contact for questions. She helpful in some of the blanks about this patient's past medical history and social history. This history is asking that when she is discharged from swing bed and returned back to [place], if you could please order home health and PT. While the patient does not like being asked to exercise or do exercises, if the therapist is in front of her she will cooperate. 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 Had rheumatic fever as a child, of an DE at age 57. Mom was 81 when she of complications of diabetes and obesity's. Years of multiple falls ended her up in a penitentiary facility for 3 years requiring a Paulette lift. 1 [place] 1 brother of complications of agent orange, tobacco abuse and alcohol abuse. Living arrangement: Assisted living Living Situation: Alone Social History Notes: She was born and raised in the [place]. She followed her sister to [place] when sister moved appear [facility]. From [place] they lived in [place]. Then went to [facility]. [place] 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 Both she and her sister moved to the [facility] and the patient has had gentle dementia with needs for ADL help. So she has been living at [place]. She started smoking at the age of 15 and smoked until age 70. She smoked 1 pack/day. No history of alcohol or recreational substance abuse.She was , however she has been better. He was an alcoholic. - Substance History Use: Uses substance without health or social issues: NONE Abuse: Recurrent use of substance despite neg consequences: NONE Dependence: Experiences withdrawal or developed tolerances: NONE - POLST Patient has POLST: Yes POLST Status: DNR (focus on comfort measures) Meds/Allgy - Home Medications Home Medications: Ambulatory Orders Medication Instructions Recorded Confirmed Levothyroxine [Synthroid] 100 mcg PO QDAC 07/30/22 11/21/23 carvediloL [Coreg] 6.25 mg PO BID 07/30/22 11/21/23 Losartan Potassium 25 mg PO BID 08/07/23 11/21/23 Furosemide [Lasix] 20 mg PO DAILY 11/19/23 11/21/23 Triamcinolone 0.1% Cream [Kenalog 1 applic TOP BID 11/19/23 11/21/23 0.1% Cream] - Allergies Allergies/Adverse Reactions: Allergies Allergy/AdvReac Type Severity Reaction Status Date / Time true AdvReac Anaphylaxis Uncoded 11/18/23 22:34 ricotta cheese AdvReac Emesis Uncoded 11/18/23 22:34 Review of Systems - Constitutional Constitutional: reports: Fatigue, Malaise, Poor appetite - Eyes Eyes: denies: Amaurosis, Blurred vision, Vision loss, Dipolpia - Ears, Nose & Throat Ears, Nose & Throat: reports: Nasal obstruction, Nasal congestion, Hoarseness. denies: Ear pain, Hearing loss, Hearing aids, Tinnitus - Cardiovascular Cariovascular: reports: Exertional dyspnea, Decr. exercise tolerance. denies: Irregular heart rate, Palpitations, Chest pain, Edema - Respiratory Respiratory: reports: Cough, SOB at rest, SOB with exertion - Gastrointestinal Gastrointestinal: denies: Abdominal pain, Abdominal distention, Constipation, Diarrhea, Change in bowel habits - Genitourinary Genitourinary: denies: Dysuria, Frequency, Urgency, Hematuria - Musculoskeletal Musculoskeletal: denies: Muscle pain, Back pain, Muscle aches, Stiffness, Joint pain - Integumentary Integumentary: denies: Rash, Pruritis - Neurological Neurological: reports: General weakness, Memory problems, Pre-existing deficit. denies: Headache, Dizziness - Psychiatric Psychiatric: denies: Depression, Anxiety, Suicidal - Endocrine Endocrine: reports: Intolerance to cold. denies: Polyuria, Polydypsia, Polyphag ia - Hematologic/Lymphatic Hematologic/Lymphatic: denies: Anemia, Bruising, Petechiae Prior Level of Functionality: [place] but able to use a walker. For greater distances she did a scooter. Does have memory loss needs verbal cues for prompting to eat, dress, toilet, and take a bath Exam - Vital Signs Reviewed Vital Signs: Yes - Physical Exam General Appearance: positive: No acute distress (She is worried because her visi on is getting more blurred without her eyedrops), Alert, Other (Pale, alert. Speech normal. Comfortable as long as she is upright sitting in bed. Exertion to try and get her to stand make sure tachypneic and struggling for air) Eyes Bilateral: positive: PERRL, EOMI Neck: positive: No JVD Respiratory: positive: No respiratory distress, Wheezes, Rhonchi. negative: Rales Cardiovascular: positive: Regular rate & rhythm, Systolic murmur Abdomen: positive: Non-tender, No organomegaly, Nml bowel sounds, No distention, Other (No bowel movement since the 16th) Skin: positive: Warm, Dry, Pallor Extremities: positive: Full ROM, No pedal edema Neurologic/Psychiatric: positive: Oriented x3, CN's nml (2-12). negative: Motor nml (generalized weakness and Dragging her left foot because of the injury) Conclusion/Plan - Problem List (1) Generalized muscle weakness Conclusion/Plan: This patient is a sedentary person who lives in an assisted living facility. But she is able to ambulate. She is below her baseline status and is being admitted to swing bed for physical therapy and rehabilitation Goal is for her to go from supine to sitting, sitting to standing, a stand pivot transfer to a chair. It would also be helpful if she could walk a couple of feet. (2) Acute respiratory failure with hypoxemia Conclusion/Plan: Patient is not on room air at baseline. Here she is requiring 2 L nasal cannula for hypoxemia. She will be given supplemental oxygen until she is ready for discharge. It is hoped that she will not need oxygen when she goes home Plan: DuoNeb inhalation as needed. (3) COVID Conclusion/Plan: To complete 2 more doses of remdesivir and 7 doses of Decadron I will be changing the Decadron from IV to p.o. (4) Hypertension Conclusion/Plan: Home medications will be resumed. And that includes Lasix 20 mg daily, losartan 25 p.o. twice daily and carvedilol 6.25 twice daily. However, her blood pressure was very high last night at 195/88. By midnight she was 152/62 with my increase of losartan. This morning she is 184/78, 191/91. Will transition to swing bed status I have increased her Cozaar to 50 mg twice daily. I would give this 48 hours or so before I would adjust her medications even further. Qualifiers: Hypertension type: primary hypertension Qualified Code(s): I10 - Essential (primary) hypertension (5) Injury of foot Conclusion/Plan: No fracture. Patient is still working with PT and we are working around the dragging of the left foot. Qualifiers: Laterality: left - Lab Results Lab results reviewed: Yes Core Measures - Anticipated LOS I expect patient to be DC'd or transferred within 96 hours.: Yes - DVT/VTE - Prophylaxis VTE/DVT Prophylaxis med ordered at admit?: Yes
--- NOTE | 2023-11-21 14:24 | PHARMACY PROGRESS NOTE ---
- Best Possible Medication History Admit Date and Time: Processed by: Pharmacy Medications reviewed in ED?: No Medication History completed: Yes Patient Interview: Completed Secondary Source(s): Insurance records, Previous admit records As the person ultimately responsible for medication therapy, providers are able to order a medication from an existing home medication list in [facility] via the "Reconcile Routine" prior to Confirmation of that medication by senior support analyst. Such practice is discouraged except when the physician, in their clinical judgment, deems that a medical need exists for a medication without regard to previous use.
[2023-11-21] MEDS ORDERED: LOSARTAN 50 MG TABLET PO SCH (21:00)
[2023-11-21] MEDS: carvediloL 3.125 MG TABLET PO SCH (21:24)
[2023-11-21] MEDS: TRIAMCINOLONE 0.1% CREAM 15 GM TUBE TOP SCH (21:25)
[2023-11-21] MEDS: NYSTATIN POWDER 15 GM TOP SCH (21:25)
[2023-11-21] MEDS: LOSARTAN 50 MG TABLET PO SCH (21:25)
[2023-11-22] MEDS: LEVOTHYROXINE 100 MCG TABLET PO SCH (06:21)
[2023-11-22] MEDS: ENOXAPARIN 40 MG/0.4 ML SYRINGE SUBQ SCH (08:05)
[2023-11-22] MEDS ORDERED: SODIUM CHLORIDE 0.9% 100ML 100 ML IV ONE (08:10)
[2023-11-22] MEDS: CHOLECALCIFEROL 400 UNIT TABLET PO SCH (08:15)
[2023-11-22] MEDS: FUROSEMIDE 20 MG TABLET PO SCH (08:15)
[2023-11-22] MEDS: REMDESIVIR 100 MG in SODIUM CHLORIDE 0.9% 100ML 100 ML IV SCH (08:16)
[2023-11-22] MEDS: dexAMETHasone 4 MG TABLET PO SCH (08:16)
[2023-11-22] MEDS ORDERED: NON FORMULARY MED (Remdesivir 100 MG) IVP SCH (09:00)
[2023-11-22] MEDS: DOCUSATE SODIUM 250 MG CAPSULE PO SCH (09:17)
[2023-11-22] MEDS: SENNA 8.6 MG TABLET PO SCH (09:17)
[2023-11-22] MEDS: IPRATROPIUM/ALBUTEROL 3 ML NEB INH PRN (15:14)
[2023-11-23] MEDS ORDERED: MINERAL OIL/PETROLAT OPHTH OINT EACHEYE PRN (09:47)
[2023-11-23] MEDS ORDERED: CARBOXYMETHYLCELLULOSE OPHTH DROPS EACHEYE PRN (10:13)
--- NOTE | 2023-11-23 11:59 | PROVIDER PROGRESS NOTE ---
Assessment/Plan - Problem List (1) Acute respiratory failure with hypoxemia Assessment/Plan: --Resolved. Currently on room air. (2) COVID Assessment/Plan: --Will complete Remdesivir today. Continue dexamethasone for 10 days of treatment. (3) Generalized muscle weakness Assessment/Plan: --Working with PT/OT. --She is at an assisted living facility at baseline. --Currently in a swing bed for additional therapies. (4) Hypertension Qualifiers: Hypertension type: primary hypertension Qualified Code(s): I10 - Essential (primary) hypertension Assessment/Plan: --Continue home antihypertensives. BP improved today. (5) Injury of foot Qualifiers: Laterality: left Assessment/Plan: --Fracture has been ruled out. - Current Meds Current Meds: Current Medications Generic Name Dose Route Start Last Admin Trade Name Freq PRN Reason Stop Dose Admin Albuterol/Ipratropium 3 ml 11/22/23 14:43 11/22/23 15:14 Ipratropium/Albuterol 3 Ml Neb INH 3 ml RTQID PRN Administration Shortness of Air/Wheezing Carvedilol 6.25 mg 11/21/23 21:00 11/23/23 08:16 Carvedilol 3.125 Mg Tablet PO 6.25 mg BID GLORIA Administration Cholecalciferol 800 unit 11/22/23 09:00 11/23/23 08:15 Cholecalciferol 400 Unit Tablet PO 800 unit DAILY GLORIA Administration Dexamethasone 6 mg 11/22/23 09:00 11/23/23 08:20 Dexamethasone 4 Mg Tablet PO 11/28/23 09:01 6 mg DAILY GLORIA Administration Docusate Sodium 250 - 500 mg 11/22/23 09:00 11/23/23 08:16 Docusate Sodium 250 Mg Capsule PO 250 mg DAILY GLORIA Administration Furosemide 20 mg 11/22/23 09:00 11/23/23 08:15 Furosemide 20 Mg Tablet PO 20 mg DAILY GLORIA Administration Levothyroxine Sodium 100 mcg 11/22/23 07:00 11/23/23 06:31 Levothyroxine 100 Mcg Tablet PO 100 mcg QDAC GLORIA Administration Losartan Potassium 50 mg 11/21/23 21:00 11/23/23 08:16 Losartan 50 Mg Tablet PO 50 mg BID GLORIA Administration Nystatin 1 applic 11/21/23 21:00 11/23/23 08:16 Nystatin Powder 15 Gm TOP 1 applic BID GLORIA Administration Senna 8.6 - 17.2 mg 11/22/23 09:00 11/23/23 08:15 Senna 8.6 Mg Tablet PO 8.6 mg DAILY GLORIA Administration Triamcinolone Acetonide 1 applic 11/21/23 21:00 11/23/23 08:16 Triamcinolone 0.1% Cream 15 Gm Tube TOP 1 ea BID GLORIA Administration - Additional Planning My Orders: My Active Orders 11/23/23 10:13 Carboxymethylcellulose 1% Opht [Refresh 1% Ophth Drops] 1 drops EACHEYE Q4HR PRN 11/23/23 11:24 Code Status [OTHERS] Routine Subjective - Subjective Patient Reports: Feeling Better, Resting Comfortably, No Complaints (Off O2. Working with PT/OT) Objective Vital Signs: Vital Signs - 24 hr 11/22/23 11/22/23 11/22/23 15:15 15:51 20:40 Temperature 36.5 C Heart Rate 79 Heart Rate [ 54 L 65 Brachial] Respiratory 16 16 Rate Blood Pressure 122/66 125/70 [Right Brachial artery] O2 Saturation 94 11/23/23 07:59 Temperature 36.6 C Heart Rate Heart Rate [ 56 L Brachial] Respiratory 16 Rate Blood Pressure 144/60 H [Right Brachial artery] O2 Saturation 95 Oxygen O2 Source Room air I&O (Last 24 Hrs): Intake and Output Totals x24h 11/21/23 11/22/23 11/23/23 23:59 23:59 23:59 Intake Total 100 1260 620 Output Total 350 3400 500 Balance -250 -2140 120 General: Alert, Oriented x3 Neuro: Alert, Disoriented Cardiovascular: Regular rate, Normal S1, Normal S2 Respiratory: Chest non-tender, No respiratory distress, Breath sounds nml Abdomen: Normal bowel sounds, Soft - Procedures Procedures: Procedures (11/18/23)
[2023-11-24] MEDS: ENOXAPARIN 40 MG/0.4 ML SYRINGE SUBQ SCH (09:14)
[2023-11-24] MEDS: polyethylene glycoL 3350 17 GM PACKET PO SCH (12:51)
--- NOTE | 2023-11-24 14:11 | PROVIDER PROGRESS NOTE ---
Assessment/Plan - Problem List (1) Acute respiratory failure with hypoxemia Assessment/Plan: (1) Acute respiratory failure with hypoxemia Assessment/Plan: --Resolved. Currently on room air. (2) COVID Assessment/Plan: --Will complete Remdesivir today. Continue dexamethasone for 10 days of treatment. (3) Generalized muscle weakness Assessment/Plan: --Working with PT/OT. --She is at an assisted living facility at baseline. --Currently in a swing bed for additional therapies. (4) Hypertension Qualifiers: Hypertension type: primary hypertension Qualified Code(s): I10 - Essential (primary) hypertension Assessment/Plan: --Continue home antihypertensives. BP improved today. (5) Injury of foot Qualifiers: Laterality: left Assessment/Plan: --Fracture has been ruled out. (2) COVID Assessment/Plan: (1) Acute respiratory failure with hypoxemia Assessment/Plan: --Resolved. Currently on room air. (2) COVID Assessment/Plan: --Will complete Remdesivir today. Continue dexamethasone for 10 days of treatment. (3) Generalized muscle weakness Assessment/Plan: --Working with PT/OT. --She is at an assisted living facility at baseline. --Currently in a swing bed for additional therapies. (4) Hypertension Qualifiers: Hypertension type: primary hypertension Qualified Code(s): I10 - Essential (primary) hypertension Assessment/Plan: --Continue home antihypertensives. BP improved today. (5) Injury of foot Qualifiers: Laterality: left Assessment/Plan: --Fracture has been ruled out. (4) Hypertension Qualifiers: Hypertension type: primary hypertension Qualified Code(s): I10 - Essential (primary) hypertension (5) Injury of foot Qualifiers: Laterality: left - Current Meds Current Meds: Current Medications Generic Name Dose Route Start Last Admin Trade Name Freq PRN Reason Stop Dose Admin Albuterol/Ipratropium 3 ml 11/22/23 14:43 11/22/23 15:14 Ipratropium/Albuterol 3 Ml Neb INH 3 ml RTQID PRN Administration Shortness of Air/Wheezing Carvedilol 6.25 mg 11/21/23 21:00 11/24/23 09:13 Carvedilol 3.125 Mg Tablet PO 6.25 mg BID GLORIA Administration Cholecalciferol 800 unit 11/22/23 09:00 11/24/23 09:14 Cholecalciferol 400 Unit Tablet PO 800 unit DAILY GLORIA Administration Dexamethasone 6 mg 11/22/23 09:00 11/24/23 09:14 Dexamethasone 4 Mg Tablet PO 11/28/23 09:01 6 mg DAILY GLORIA Administration Docusate Sodium 250 - 500 mg 11/22/23 09:00 11/24/23 09:58 Docusate Sodium 250 Mg Capsule PO 250 mg DAILY GLORIA Administration Enoxaparin Sodium 40 mg 11/24/23 09:00 11/24/23 09:14 Enoxaparin 40 Mg/0.4 Ml Syringe SUBQ 40 mg DAILY GLORIA Administration Furosemide 20 mg 11/22/23 09:00 11/24/23 09:13 Furosemide 20 Mg Tablet PO 20 mg DAILY GLORIA Administration Levothyroxine Sodium 100 mcg 11/22/23 07:00 11/24/23 06:24 Levothyroxine 100 Mcg Tablet PO 100 mcg QDAC GLORIA Administration Losartan Potassium 50 mg 11/21/23 21:00 11/24/23 09:14 Losartan 50 Mg Tablet PO 50 mg BID GLORIA Administration Nystatin 1 applic 11/21/23 21:00 11/24/23 09:17 Nystatin Powder 15 Gm TOP 1 applic BID GLORIA Administration Polyethylene Glycol 17 gm 11/24/23 11:00 11/24/23 12:51 Polyethylene Glycol 3350 17 Gm Packet PO 17 gm DAILY GLORIA Administration Senna 8.6 - 17.2 mg 11/22/23 09:00 11/24/23 09:14 Senna 8.6 Mg Tablet PO 8.6 mg DAILY GLORIA Administration Triamcinolone Acetonide 1 applic 11/21/23 21:00 11/24/23 09:17 Triamcinolone 0.1% Cream 15 Gm Tube TOP 1 applic BID GLORIA Administration Subjective - Subjective Patient Reports: Resting Comfortably, No Complaints Objective Vital Signs: Vital Signs - 24 hr 11/23/23 11/24/23 16:39 08:11 Temperature 36.5 C 36.7 C Heart Rate [ 58 L 61 Brachial] Respiratory 16 16 Rate Blood Pressure 118/70 163/75 H [Right Brachial artery] O2 Saturation 96 95 Oxygen O2 Source Room air I&O (Last 24 Hrs): Intake and Output Totals x24h 11/22/23 11/23/23 11/24/23 23:59 23:59 23:59 Intake Total 1260 1540 240 Output Total 3400 1500 400 Balance -2140 40 -160 General: Alert, Oriented x3 Cardiovascular: Regular rate, Normal S1 Respiratory: No respiratory distress, Breath sounds nml - Procedures Procedures: Procedures (11/18/23)
--- NOTE | 2023-11-25 10:25 | PROVIDER PROGRESS NOTE ---
Assessment/Plan - Problem List (1) Acute respiratory failure with hypoxemia Assessment/Plan: (1) Acute respiratory failure with hypoxemia Assessment/Plan: --Resolved. Currently on room air. (2) COVID Assessment/Plan: --Will complete Remdesivir today. Continue dexamethasone for 10 days of treatment. --Off COVID precautions. (3) Generalized muscle weakness Assessment/Plan: --Working with PT/OT. --She is at an assisted living facility at baseline. --Currently in a swing bed for additional therapies. --Pending PT reevaluation. Anticipate discharge to [facility] once able. (4) Hypertension Qualifiers: Hypertension type: primary hypertension Qualified Code(s): I10 - Essential (primary) hypertension Assessment/Plan: --Continue home antihypertensives. BP improved today. (5) Injury of foot Qualifiers: Laterality: left Assessment/Plan: --Fracture has been ruled out. (4) Hypertension Qualifiers: Hypertension type: primary hypertension Qualified Code(s): I10 - Essential (primary) hypertension (5) Injury of foot Qualifiers: Laterality: left - Current Meds Current Meds: Current Medications Generic Name Dose Route Start Last Admin Trade Name Freq PRN Reason Stop Dose Admin Albuterol/Ipratropium 3 ml 11/22/23 14:43 11/22/23 15:14 Ipratropium/Albuterol 3 Ml Neb INH 3 ml RTQID PRN Administration Shortness of Air/Wheezing Carvedilol 6.25 mg 11/21/23 21:00 11/25/23 08:35 Carvedilol 3.125 Mg Tablet PO 6.25 mg BID GLORIA Administration Cholecalciferol 800 unit 11/22/23 09:00 11/25/23 08:36 Cholecalciferol 400 Unit Tablet PO 800 unit DAILY GLORIA Administration Dexamethasone 6 mg 11/22/23 09:00 11/25/23 08:36 Dexamethasone 4 Mg Tablet PO 11/28/23 09:01 6 mg DAILY GLORIA Administration Docusate Sodium 250 - 500 mg 11/22/23 09:00 11/25/23 08:35 Docusate Sodium 250 Mg Capsule PO 500 mg DAILY GLORIA Administration Enoxaparin Sodium 40 mg 11/24/23 09:00 11/25/23 08:34 Enoxaparin 40 Mg/0.4 Ml Syringe SUBQ 40 mg DAILY GLORIA Administration Furosemide 20 mg 11/22/23 09:00 11/25/23 08:35 Furosemide 20 Mg Tablet PO 20 mg DAILY GLORIA Administration Levothyroxine Sodium 100 mcg 11/22/23 07:00 11/25/23 06:54 Levothyroxine 100 Mcg Tablet PO 100 mcg QDAC GLORIA Administration Losartan Potassium 50 mg 11/21/23 21:00 11/25/23 08:36 Losartan 50 Mg Tablet PO 50 mg BID GLORIA Administration Nystatin 1 applic 11/21/23 21:00 11/24/23 21:06 Nystatin Powder 15 Gm TOP 1 applic BID GLORIA Administration Polyethylene Glycol 17 gm 11/24/23 11:00 11/25/23 08:36 Polyethylene Glycol 3350 17 Gm Packet PO 17 gm DAILY GLORIA Administration Senna 8.6 - 17.2 mg 11/22/23 09:00 11/25/23 08:35 Senna 8.6 Mg Tablet PO 17.2 mg DAILY GLORIA Administration Triamcinolone Acetonide 1 applic 11/21/23 21:00 11/24/23 21:07 Triamcinolone 0.1% Cream 15 Gm Tube TOP 1 applic BID GLORIA Administration - Additional Planning My Orders: My Active Orders 11/25/23 07:08 IV Discontinuation [RC] .ONCE Subjective - Subjective Patient Reports: Feeling Better, Resting Comfortably, No Complaints Objective Vital Signs: Vital Signs - 24 hr 11/24/23 11/25/23 15:53 09:00 Temperature 36.4 C L 36.5 C Heart Rate [ 57 L 65 Brachial] Respiratory 16 18 Rate Blood Pressure 132/62 H 120/40 L [Right Brachial artery] O2 Saturation 94 96 Oxygen O2 Source Room air I&O (Last 24 Hrs): Intake and Output Totals x24h 11/23/23 11/24/23 11/25/23 23:59 23:59 23:59 Intake Total 1540 880 120 Output Total 1500 1100 400 Balance 40 -220 -280 General: Alert, Oriented x3 Cardiovascular: Regular rate, Normal S1, Normal S2 Respiratory: Breath sounds nml Abdomen: Normal bowel sounds, Soft - Procedures Procedures: Procedures (11/18/23)
[2023-11-25] MEDS: MAGNESIUM HYDROXIDE 2,400 MG/30 ML UDC PO ONE (16:18)
[2023-11-25] MEDS: MAG HYDROX/AL HYDROX/SIMETH 30 ML UDC PO PRN (16:20)
[2023-11-26 15:57] VITALS: O2SAT 91
[2023-11-27] MEDS: ZINC OXIDE 20% OINT 30 GM TUBE TOP PRN (05:49)
[2023-11-27 08:50] VITALS: BP 151/69
--- NOTE | 2023-11-27 09:48 | Discharge Plan ---
"Discharge Plan for SNF / [facility] - Discharge Plan And Transition Orders Problem Reviewed?: Yes Disposition: 06 Home Health Service Condition: Good Allergies and Adverse Reactions: Allergies Allergy/AdvReac Type Severity Reaction Status Date / Time true AdvReac Anaphylaxis Uncoded 11/18/23 22:34 jack cheese AdvReac Emesis Uncoded 11/18/23 22:34 - SNF / [facility] Transition Orders Admit to (Facility): [facility] Medicare Certification Statement: I certify that Post Hospital fpc care is medically necessary on a continuing basis for any of the conditions for which she/he is receiving care during hospitalization. Notify PCP of admission and forward orders to primary provider for signature. Weight on admission and: Weekly Call PCP immediately if weight increases by: 5 kg Other Notification Orders: Call PCP immediately if patient develops dyspnea, chest pain/tightness or edema. Additional Bowel Program Orders: If no BM after 2 days, nurse may give M.O.M. 30ml PO PRN and/or ducolax Supp 1 [place] and/or FEI 250mg P.O., and/or senna 1-2 tabs PO. On day 3 nurse may give repeat above order until residents constipation is resolved. Annual Influenza Vaccine (between May 05 and December 02): Yes Two-step PPD per [facility] [phone] or approved exception documents: Yes Treatments & Other Orders: Home health. Medication Orders: PLEASE REFER TO THE DISCHARGE MEDICATION LIST. Insulin Orders?: No - Diet Type: Geriatric Texture: Regular Liquids: Thin May have monthly special meal: Yes - Therapies | Activity Therapy: Evaluation | Treat if indicated: PT, OT Rehabilitation Potential: Maximize functional status, Maintain present ADL Functional Activity: No Restrictions Weight Bearing: Full Weight Follow Up: Follow up with Naomi Moe in 3-5 days."
--- NOTE | 2023-11-27 10:05 | DISCHARGE SUMMARY ---
Discharge Summary Admit Date: 11/25/23 Discharge Date: 11/27/23 Discharging Provider: Mesha Menon Primary Care Provider: Naomi Moe Code Status: Attempt Resuscitation Condition at Discharge: Good Discharge Disposition: Home Health Service Discharge Facility Name: [facility] DIAGNOSES Discharge Diagnoses with Status of Each Condition: (1) Acute respiratory failure with hypoxemia Assessment/Plan: --Resolved. Currently on room air. (2) COVID Assessment/Plan: --Will complete Remdesivir today. Completed dexamethasone for 10 days of treatment on 11/26. --Off COVID precautions. (3) Generalized muscle weakness Assessment/Plan: --Working with PT/OT. --She is at an assisted living facility at baseline. --Currently in a swing bed for additional therapies. --Discharge to [facility] on 11/26 (4) Hypertension Qualifiers: Hypertension type: primary hypertension Qualified Code(s): I10 - Essential (primary) hypertension Assessment/Plan: --Continue home antihypertensives. (5) Injury of foot Qualifiers: Laterality: left Assessment/Plan: --Fracture has been ruled out. - HPI History of Present Illness: This is a curt lady who lives alone in her room at her assisted living facility. She moved to the [place] approximately 2021. She is a relatively sedentary person. Spends most of her time in a chair. But she is able to go from sitting to standing using a walker. In the facility, if is a long distance, she uses a motorized scooter. She lives there because of memory loss, anxiety, and needs help with bathing, feeding, dressing and getting her medications. She does have a hospital bed in her room. She uses a leg wedger machine for her left leg at baseline. At her primary care provider today, Naomi Moe, and she endorses the patient is relatively sedentary. But she is able to have adequate bed mobility and chair mobility. For a few days [employer], she has been getting confused, sleepier, complaining of a cough. She fell on November 16. Injured her leg and ankle. That caused her to have more issues with trying to get around. On the day of admission to acute care November 17 she had decreased alertness, somnolence, increasing cough. She was brought to the emergency room by family where she was afebrile, normotensive. However hypoxic to 88% on room air. She had some wheezing and lung exam. Chest x-ray was clear of pneumonia. Creatinine was acutely elevated. She is usually 0.8 or 0.9 and she was 1.5. White cell count was normal. Viral panel was positive for COVID. She was placed in acute care status from November 17. She was complaining of bilateral calf muscle pain. Venous Dopplers were negative. With physical therapy she is a moderate assist from sitting to standing and a moderate assist for supine to sitting. She does not want a walk on her left ankle because of pain. And leans to the right. Rehab is recommended to increase her functional independence and to return to the [facility]. Culture returned her just to the baseline she was which is being chair mobile and bed level. She was started on remdesivir on the . Today is day #3 of 5 dosing. Other than oxygen requirement, this patient has been relatively stable. On 2 L nasal cannula without tachypnea or respiratory distress. I did notify her sister after the patient respiratory. Even though her sister is not a formal DPOA, she is the only living relative this patient has. And she is the person to contact for questions. She helpful in some of the blanks about this patient's past medical history and social history. This history is asking that when she is discharged from swing bed and returned back to [place], if you could please order home health and PT. While the patient does not like being asked to exercise or do exercises, if the therapist is in front of her she will cooperate. - HOSPITAL COURSE Hospital Course: Patient is a 73-year-old female who presented to the ED after sustaining a fall and injuring her leg and ankle. She was admitted and given a diagnosis of COVID-19 hypoxia and was started on remdesivir and dexamethasone. X-rays were negative for any fracture. An ultrasound was also performed which ruled out a DVT. Ultimately her goal was to return to her assisted living facility. Once her acute issues resolved, she was transition to a swing bed on 11/21 for additional physical therapy and Occupational Therapy assessments. She did make improvements and was subsequently discharged back to [facility] living. She will require home health. She completed remdesivir and dexamethasone while inpatient and was successfully weaned off of oxygen. - ALLERGIES Allergies/Adverse Reactions: Allergies Allergy/AdvReac Type Severity Reaction Status Date / Time true AdvReac Anaphylaxis Uncoded 11/18/23 22:34 ricotta cheese AdvReac Emesis Uncoded 11/18/23 22:34 - MEDICATIONS Home Medications: Ambulatory Orders Medication Instructions Recorded Confirmed Levothyroxine [Synthroid] 100 mcg PO QDAC 07/30/22 11/21/23 carvediloL [Coreg] 6.25 mg PO BID 07/30/22 11/21/23 Losartan Potassium 25 mg PO BID 08/07/23 11/21/23 Furosemide [Lasix] 20 mg PO DAILY 11/19/23 11/21/23 Triamcinolone 0.1% Cream [Kenalog 1 applic TOP BID 11/19/23 11/21/23 0.1% Cream] - PHYSICAL EXAM AT DISCHARGE General Appearance: positive: No acute distress, Alert Eyes Bilateral: positive: Normal inspection, PERRL, EOMI Respiratory: positive: Breath sounds nml. negative: Wheezes Cardiovascular: positive: Regular rate & rhythm, No murmur, No gallop Abdomen: positive: Non-tender, Nml bowel sounds, No distention Extremities: positive: Non-tender, No pedal edema Neurologic/Psychiatric: positive: Oriented x3, CN's nml (2-12) - FOLLOW UP Follow Up: Follow up with Naomi Moe in 3-5 days. - TIME SPENT Time Spent in Discharge (Minutes): 30
== END 2023-11-27 15:25 | disposition home health service (06) | DRG 947 ==
LOC: MS2 14:18
PROVIDERS: ADMIT Specialist; ATTEND Family Medicine
PROC: XW033E5 Introduction of Remdesivir Anti-infective into Peripheral Vein, Percutaneous Approach, New Technology Group 5 (ICD-10-PCS; principal; 2023-11-21)
PROC: 3E0333Z Introduction of Anti-inflammatory into Peripheral Vein, Percutaneous Approach (ICD-10-PCS; 2023-11-21)
DX: R53.1 Weakness (principal); J96.01 Acute respiratory failure with hypoxia; U07.1 COVID-19; I10 Essential (primary) hypertension; S99.922D Unspecified injury of left foot, subsequent encounter; Z87.891 Personal history of nicotine dependence; F03.90 Unspecified dementia, unspecified severity, without behavioral disturbance, psychotic disturbance, mood disturbance, and anxiety; Z66 Do not resuscitate; F41.9 Anxiety disorder, unspecified; R41.3 Other amnesia
CPT/HCPCS: 94640

== ENCOUNTER 2024-02-15 15:47 | Outpatient (CLI) | payer MEDICARE, OTHER | END 2024-02-15 23:59 | disposition left against medical advice (07) | LOC: EMS 15:47 | DX: R07.89 Other chest pain (principal); R06.02 Shortness of breath; R42 Dizziness and giddiness; I10 Essential (primary) hypertension ==

== ENCOUNTER 2024-02-19 13:44 | Outpatient (CLI) | payer MEDICARE, OTHER | END 2024-02-19 23:59 | disposition E | LOC: EMS 13:44 ==